=== PATIENT | female | born 1975 | race Caucasian/White ===

== ENCOUNTER 2017-01-03 04:27 | Emergency (ER) | payer OTHER ==
[2017-01-03 04:41] VITALS: BP 134/85; PULSE 90; TEMP 97.5; BMI 28.3
[2017-01-03] MEDS ORDERED: ALBUTEROL SO4 2.5/IPRATROPIUM 0.5 INH SOL 3 ML VIAL.NEB. NEB STA ×2 (04:48→05:22)
[2017-01-03] MEDS ORDERED: predniSONE 20 MG TABLET (UD) PO ONE (04:50)
--- NOTE | 2017-01-03 04:50 | PDOC ---
History of Present Illness - General History Source: Patient Exam Limitations: No Limitations - History of Present Illness Initial Comments: 01/03/17 05:08 The patient is a 41 year old female with a significant past medical of asthma and seasonal allergies (on Zyrtec), who presents to the ER with shortness of breath and cough for two weeks. Patient reports she has a productive cough with green phlegm. She say she has accompanied abdominal pain when she coughs. Patient had 1 treatment of albuterol three days ago. She reports borrowing her daughters pump yesterday for the symptoms. Patient says she made an appointment with her PCP for next week. Patient reports she has difficulty sleeping secondary to the shortness of breath. She states she was admitted for asthma and given steroid medication last year. Denies fever, chills Denies nausea, vomiting, diarrhea Denies chest pain PCP: Dr. Oneyda Walker <Philly Marrufo - Last Filed: 01/03/17 05:07> - General History Source: Patient <Rodo Roth - Last Filed: 01/03/17 05:23> - General Chief Complaint: Asthma Stated Complaint: ASTHMA Time Seen by Provider: 01/03/17 04:48 Past History <Philly Marrufo - Last Filed: 01/03/17 05:07> - Past Medical History Anemia: No Asthma: Yes Cancer: No Cardiac Disorders: No CVA: No COPD: No CHF: No Dementia: No Diabetes: No GI Disorders: No Disorders: No HTN: No Hypercholesterolemia: No Liver Disease: No Seizures: No Thyroid Disease: No - Surgical History Abdominal Surgery: Yes (ABDOMINOPLASTY) Appendectomy: No Cardiac Surgery: No Cholecystectomy: No Lung Surgery: No Neurologic Surgery: No Orthopedic Surgery: No - Family Disease History Family Disease History: Diabetes: Mother - Reproductive History (#): 2 Para: 1 Therapeutic (s) & number: No - Immunization History Immunization Up to Date: Yes - Psycho/Social/Smoking Cessation Hx Anxiety: No Suicidal Ideation: No Smoking History: Never smoked Have you smoked in the past 12 months: No Information on smoking cessation initiated: No Hx Alcohol Use: No Drug/Substance Use Hx: No Substance Use Type: None Hx Substance Use Treatment: No <Rodo Roth - Last Filed: 01/03/17 05:23> - Past Medical History Allergies/Adverse Reactions: Allergies Allergy/AdvReac Type Severity Reaction Status Date / Time No Known Allergies Allergy Verified 01/03/17 04:40 Home Medications: Ambulatory Orders Albuterol Sulfate Inhaler - [Ventolin HFA Inhaler -] 1 - 2 inh PO PRN PRN Albuterol 0.083% Nebulizer Mary [Ventolin 0.083% Nebulizer Soln -] 1 neb NEB Q6H #30 vial 01/03/17 Albuterol Sulfate Inhaler - [Ventolin HFA Inhaler -] 2 inh IH Q6H #1 inh Methylprednisolone [Medrol Dose Kevin] 4 mg PO ASDIR #21 tablet 01/03/17 Review of Systems - Review of Systems Comments:: 01/03/17 05:08 CONSTITUTIONAL: Absent: fever, no chills, no fatigue EYES: Absent: visual changes ENT: Absent: ear pain, no sore throat CARDIOVASCULAR: Absent: chest pain, no palpitations RESPIRATORY: Present: +cough, + SOB GI: Present: +abdominal pain Absent: no nausea, no vomiting, no constipation, no diarrhea GENITOURINARY: Absent: dysuria, no frequency, no hematuria MUSCULOSKELETAL: Absent: back pain, no arthralgia, no myalgia SKIN: Absent: rash NEURO: Absent: headache <Uts,Philly - Last Filed: 01/03/17 05:07> *Physical Exam - Vital Signs Last Vital Signs Temp Pulse Resp BP Pulse Ox 97.5 F L 90 20 134/85 100 01/03/17 04:38 01/03/17 04:38 01/03/17 04:38 01/03/17 04:38 01/03/17 04:38 - Physical Exam Comments: 01/03/17 05:09 GENERAL: Well-appearing, well-nourished. No apparent distress. HEENT: Normocephalic, atraumatic. PERRL, EOM intact. CARDIOVASCULAR: Normal S1, S2. Regular rate and rhythm. PULMONARY: Scattered wheezes in all lung box ABDOMEN: Soft, non-distended, non-tender. EXTREMITIES: Normal ROM in all four extremities. No gross deformities. SKIN: Warm, dry. No rash NEUROLOGICAL: No focal neurological deficits. <Uts,Philly - Last Filed: 01/03/17 05:07> - Vital Signs Last Vital Signs Temp Pulse Resp BP Pulse Ox 97.5 F L 90 20 134/85 100 01/03/17 04:38 01/03/17 04:38 01/03/17 04:38 01/03/17 04:38 01/03/17 04:38 <Rodo Roth - Last Filed: 01/03/17 05:23> Medical Decision Making - Medical Decision Making 01/03/17 05:23 Dr. Roth: The scribe's documentation has been prepared under my direction and personally reviewed by me in its entirery. I confirm that the note above accurately reflects all work, treatment, procedures, and medical decision making performed by me. <Rodo Roth - Last Filed: 01/03/17 05:23> *DC/Admit/Observation/Transfer - Attestations Scribe Attestion: 01/03/17 05:09 Documentation prepared by Philly Marrufo, acting as medical secretary for Rodo Roth DO. <Philly Marrufo - Last Filed: 01/03/17 05:07> - Discharge Dispostion Admit: No <Rodo Roth - Last Filed: 01/03/17 05:23> Diagnosis at time of Disposition: Asthma Qualifiers: Asthma severity: unspecified severity Asthma complication type: uncomplicated Qualified Code(s): J45.909 - Unspecified asthma, uncomplicated - Discharge Dispostion Disposition: HOME Condition at time of disposition: Stable - Prescriptions Prescriptions: Methylprednisolone [Medrol Dose Kevin] 4 mg PO ASDIR #21 tablet Albuterol 0.083% Nebulizer Mary [Ventolin 0.083% Nebulizer Soln -] 1 neb NEB Q6H #30 vial Albuterol Sulfate Inhaler - [Ventolin HFA Inhaler -] 2 inh IH Q6H #1 inh - Referrals Referrals: Siomara Erickson MD [Primary Care Provider] - - Patient Instructions Printed Discharge Instructions: Asthma -- Adult Print Language: SWISS
[2017-01-03] MEDS ORDERED: predniSONE 20 MG TABLET (UD) ONE (05:05)
[2017-01-03] MEDS ORDERED: ALBUTEROL SO4 2.5/IPRATROPIUM 0.5 INH SOL 3 ML VIAL.NEB. NEB ONE (05:25)
== END 2017-01-03 06:17 | disposition home or self-care (01) ==
LOC: JER 04:27
PROC: 3E0F7GC Introduction of Other Therapeutic Substance into Respiratory Tract, Via Natural or Artificial Opening (ICD-10-PCS; principal; 2017-01-03)
DX: J45.909 Unspecified asthma, uncomplicated (principal)
CPT/HCPCS: 94640; 99282-25

== ENCOUNTER 2017-09-19 15:59 | Emergency (ER) | payer OTHER ==
[2017-09-19 16:18] VITALS: BMI 27.3
[2017-09-19] MEDS ORDERED: SODIUM CHLORIDE 1,000 ML IV STA ×2 (16:40→20:02)
[2017-09-19] MEDS ORDERED: KETOROLAC TROMETHAMINE 30 MG/1 ML VIAL IVPUSH ONE (16:41)
[2017-09-19] MEDS ORDERED: KETOROLAC TROMETHAMINE 30 MG/1 ML VIAL ONE (16:55)
[2017-09-19 16:57] LABS: BASO % 0.5 % (0-2.0); EOS % 1.1 % (0-4.5); HEMATOCRIT 38.3 % (32.4-45.2); HEMOGLOBIN 12.6 GM/dL (10.7-15.3); MCH 31.3 pg (25.7-33.7); MCHC 32.9 g/dl (32.0-36.0); MEAN PLT VOLUME 7.8 fl (7.5-11.1); MONO % 4.2 % (3.8-10.2); NEUT % 81.2 % (42.8-82.8); PLATELET COUNT 236 K/MM3 (134-434); RBC 4.03 M/mm3 (3.60-5.2); RDW 13.4 % (11.6-15.6); WHITE BLOOD COUNT 12.2 K/mm3 (4.0-10.0)
--- NOTE | 2017-09-19 17:01 | PDOC ---
History of Present Illness - General Chief Complaint: Vaginal Bleeding Stated Complaint: ABD PAIN Time Seen by Provider: 09/19/17 16:16 History Source: Patient - History of Present Illness Timing/Duration: reports: constant Quality: reports: severe Past History - Past Medical History Allergies/Adverse Reactions: Allergies Allergy/AdvReac Type Severity Reaction Status Date / Time No Known Allergies Allergy Verified 09/19/17 16:15 Home Medications: Ambulatory Orders Albuterol Sulfate Inhaler - [Ventolin HFA Inhaler -] 1 - 2 inh PO PRN PRN Albuterol 0.083% Nebulizer Mray [Ventolin 0.083% Nebulizer Soln -] 1 neb NEB Q6H #30 vial 01/03/17 Albuterol Sulfate Inhaler - [Ventolin HFA Inhaler -] 2 inh IH Q6H #1 inh Methylprednisolone [Medrol Dose Kevin] 4 mg PO ASDIR #21 tablet 01/03/17 Anemia: No Asthma: Yes Cancer: No Cardiac Disorders: No CVA: No COPD: No CHF: No Dementia: No Diabetes: No GI Disorders: No Disorders: No HTN: No Hypercholesterolemia: No Liver Disease: No Seizures: No Thyroid Disease: No - Surgical History Abdominal Surgery: Yes (ABDOMINOPLASTY) Appendectomy: No Cardiac Surgery: No Cholecystectomy: No Lung Surgery: No Neurologic Surgery: No Orthopedic Surgery: No - Family Disease History Family Disease History: Diabetes: Mother - Reproductive History (#): 2 Para: 1 Therapeutic (s) & number: No - Immunization History Immunization Up to Date: Yes - Suicide/Smoking/Psychosocial Hx Smoking History: Never smoked Have you smoked in the past 12 months: No Information on smoking cessation initiated: No Hx Alcohol Use: No Drug/Substance Use Hx: No Substance Use Type: None Hx Substance Use Treatment: No Review of Systems - Review of Systems Constitutional: No: Chills, Fever ABD/GI: Yes: Abdominal cramping. No: Nausea, Vomiting : No: Dysuria *Physical Exam - Vital Signs Last Vital Signs Temp Pulse Resp BP Pulse Ox 98.6 F 88 22 129/87 100 09/19/17 16:15 09/19/17 16:15 09/19/17 16:15 09/19/17 16:15 09/19/17 16:15 - Physical Exam General Appearance: Yes: Appropriately Dressed, Mild Distress HEENT: positive: Normal Voice Neck: positive: Supple Respiratory/Chest: negative: Respiratory Distress Gastrointestinal/Abdominal: positive: Tender (diffusely to lower abd), Soft. negative: Distended, Guarding, Rebound Integumentary: positive: Dry, Warm Neurologic: positive: Fully Oriented, Alert, Normal Mood/Affect ED Treatment Course - LABORATORY CBC & Chemistry Diagram: 09/19/17 16:52 09/19/17 16:52 - RADIOLOGY Radiology Studies Ordered: Category Date Time Status TRANSVAGINAL US PREG [US] Stat Ultrasound 09/19/17 16:40 Ordered Medical Decision Making - Medical Decision Making 09/19/17 16:50 42 yo F, (s/p spon AB), diagnosed with spontaneous AB at 12 weeks, 5 days ago on ultrasound. States she was seen by her LAWNMOWER MECHANIC, Dr. Chavez yesterday and started on cytotec SL which she took for first time this am and now presents with worsening abdominal cramping throughout the day and started having profuse vaginal bleed enroute per patient. No dizziness, weakness, syncope, nausea, vomiting, fever or chills See exam Abd cramping with profuse vaginal bleed s/p dose of cytotec SL today for spontaneous AB at 12 weeks. Stable in ED but appears uncomfortable, currently sitting on melissa that is saturated with blood, unable to timoteo speculum exam -pain control -IVF -labs -rpt US -LAWNMOWER MECHANIC c/s 09/19/17 17:32 09/19/17 19:01 Pt signed out to KAT Dowd pending US and LAWNMOWER MECHANIC c/s *DC/Admit/Observation/Transfer Diagnosis at time of Disposition: Complete - Discharge Dispostion Disposition: HOME Condition at time of disposition: Stable - Referrals Referrals: Halie Chavez MD [Certified Nurse Dairy Nutritionist] - Siomara Erickson MD [Primary Care Provider] - - Patient Instructions Printed Discharge Instructions: DI for Miscarriage Additional Instructions: You were able to pass the contents of your in the emergency department. Please follow-up with your primary care doctor or CARDIOVASCULAR TECHNOLOGIST doctor this week. You may take ibuprofen 800 mg 3 times a day as needed for pain. Please drink plenty of fluids and get plenty of rest. Return to the emergency department if you have worsening bleeding, abdominal pain, or any worsening or concerning symptoms. - Post Discharge Activity Forms/Work/School Notes: Back to Work
[2017-09-19 17:20] LABS: INR 1.01 (0.82-1.09); PROTHROMBIN TIME (PATIENT) 11.4 SEC (9.98-11.88)
[2017-09-19 17:30] LABS: ALBUMIN 3.2 g/dl (3.4-5.0); ANION GAP 8 (8-16); BILIRUBIN,TOTAL 0.2 mg/dL (0.2-1.0); BLOOD UREA NITROGEN 9 mg/dL (7-18); CALCIUM 8.1 mg/dL (8.5-10.1); CHLORIDE 105 mmol/L (98-107); CO2 25 mmol/L (21-32); CREATININE 0.5 mg/dL (0.55-1.02); GLUCOSE,RANDOM 92 mg/dL (74-106); SGOT/AST 12 U/L (15-37); SGPT/ALT 19 U/L (12-78); SODIUM 138 mmol/L (136-145)
[2017-09-19 17:45] LABS: ALK PHOS 58 U/L (45-117)
[2017-09-19 17:50] LABS: URINE APPEARANCE SLCLOUDY; URINE BILIRUBIN NEGATIVE (NEGATIVE); URINE BLOOD 3+ (NEGATIVE); URINE COLOR LTYELLOW; URINE GLUCOSE (UA) NEGATIVE (NEGATIVE); URINE KETONE NEGATIVE (NEGATIVE); URINE LEUK ESTERASE NEGATIVE (NEGATIVE); URINE NITRITE NEGATIVE (NEGATIVE); URINE UROBILINOGEN NEGATIVE mg/dL (0.2-1.0)
[2017-09-19 18:29] LABS: URINE PROTEIN 1+ (NEGATIVE)
[2017-09-19 18:57] LABS: CALCIUM OXALATE CRYSTALS FEW /hpf (NONE SEEN); URINE BACTERIA RARE /hpf (NONE SEEN)
--- NOTE | 2017-09-19 19:27 | PDOC ---
*Physical Exam - Vital Signs Last Vital Signs Temp Pulse Resp BP Pulse Ox 98.6 F 88 22 129/87 100 09/19/17 16:15 09/19/17 16:15 09/19/17 16:15 09/19/17 16:15 09/19/17 16:15 ED Treatment Course - LABORATORY CBC & Chemistry Diagram: 09/19/17 16:52 09/19/17 16:52 - ADDITIONAL ORDERS Additional order review: Laboratory Results 09/19/17 09/19/17 09/19/17 17:35 16:52 16:52 PT with INR 11.40 INR 1.01 Sodium Potassium Chloride Carbon Dioxide Anion Gap BUN Creatinine Creat Clearance w eGFR Random Glucose Calcium Total Bilirubin AST ALT Alkaline Phosphatase Total Protein Albumin Beta HCG, Quant Urine Color Ltyellow Urine Appearance Slcloudy Urine pH 8.0 D Ur Specific Hickman 1.012 Urine Protein 1+ H Urine Glucose (UA) Negative Urine Ketones Negative Urine Blood 3+ H Urine Nitrite Negative Urine Bilirubin Negative Urine Urobilinogen Negative Ur Leukocyte Esterase Negative Urine WBC (Auto) 5 Urine RBC (Auto) 1111 Calcium Oxalate Crystal Few Urine Bacteria Rare Blood Type O POSITIVE Antibody Screen Negative 09/19/17 16:52 PT with INR INR Sodium 138 Potassium 4.0 Chloride 105 Carbon Dioxide 25 Anion Gap 8 BUN 9 Creatinine 0.5 L Creat Clearance w eGFR > 60 Random Glucose 92 Calcium 8.1 L Total Bilirubin 0.2 D AST 12 L ALT 19 Alkaline Phosphatase 58 Total Protein 7.0 Albumin 3.2 L Beta HCG, Quant 1309.0 Urine Color Urine Appearance Urine pH Ur Specific Hickman Urine Protein Urine Glucose (UA) Urine Ketones Urine Blood Urine Nitrite Urine Bilirubin Urine Urobilinogen Ur Leukocyte Esterase Urine WBC (Auto) Urine RBC (Auto) Calcium Oxalate Crystal Urine Bacteria Blood Type Antibody Screen 09/19/17 16:52 RBC 4.03 MCV 95.0 MCHC 32.9 RDW 13.4 MPV 7.8 Neutrophils % 81.2 D Lymphocytes % 13.0 D Monocytes % 4.2 Eosinophils % 1.1 Basophils % 0.5 - Medications Given in the ED: ED Medications Discontinued Medications Generic Name Dose Route Start Last Admin Trade Name Freq PRN Reason Stop Dose Admin Sodium Chloride 1,000 mls @ 1,000 mls/hr 09/19/17 16:40 09/19/17 17:03 Normal Saline - IV 09/19/17 17:39 1,000 mls/hr ASDIR STA Administration Ketorolac Tromethamine 30 mg 09/19/17 16:41 09/19/17 17:04 Toradol Injection - IVPUSH 09/19/17 16:42 30 mg ONCE ONE Administration Medical Decision Making - Medical Decision Making 09/19/17 19:36 Received sign out from AKT Phelps. Pt. is pending US for retained products. Spoke with Dr. Rucker d/t pt soaking multiple chucks. States that the patient should expect large amount of bleeding d/t the cytotec. She is not a candidate for D&C as she has only had one dose of cytotec. Will call Dr. Rucker back when patient is back from US as to further dosing instructions for cytotec 09/19/17 19:59 Pt. states that she has had 8 total cytotec suppositories. Spoke with Dr. Soriano again. Recommends that she have 6 more cytotec, 3 pills for 2 more days and ibuprofen for pain. Waiting for US results. 09/19/17 20:[address] Soriano, based on US no cytotec, sac and pole still retained. Recommended pitocin drip at this time 20 units at a rate of 20 per hour to induce. 09/20/17 00:01 Dr. Soriano also requesting 200mcg of cytotec vaginal suppository. 09/20/17 03:06 No passed products. Patient to get another 200mgc of cytotec per Dr. Rucker. 09/20/17 04:07 Still no passed products 09/20/17 05:45 Pitocin drip restarted. Will give another 200mg of cytotec orally. Dr. Rucker in evaluating patient 09/20/17 06:19 Dr. Rucker able to manually remove products in ED. Verbal and written consent obtained. Will continue pitocin drip for two hours. If she has minimal bleeding at 8am she may go home. *DC/Admit/Observation/Transfer Diagnosis at time of Disposition: Complete - Discharge Dispostion Disposition: HOME Condition at time of disposition: Stable Admit: No - Referrals Referrals: Siomara Erickson MD [Primary Care Provider] - Halie Chavez MD [Certified Nurse Airbrush Painter] - - Patient Instructions Printed Discharge Instructions: DI for Miscarriage Additional Instructions: You were able to pass the contents of your in the emergency department. Please follow-up with your primary care doctor or ENGRAVER COPPERPLATE doctor this week. You may take ibuprofen 800 mg 3 times a day as needed for pain. Please drink plenty of fluids and get plenty of rest. Return to the emergency department if you have worsening bleeding, abdominal pain, or any worsening or concerning symptoms. - Post Discharge Activity Forms/Work/School Notes: Back to Work
[2017-09-19] MEDS ORDERED: ACETAMINOPHEN 1000 MG/100 ML VIAL (NON FORMULARY) IVPB ONE (20:06)
[2017-09-19] MEDS ORDERED: D5W-LR W/ 20 UNITS OXYTOCIN 20 UNIT/1,000 ML INFUS.BAG IV SCH ×2 (20:15→23:02)
[2017-09-19] MEDS ORDERED: ACETAMINOPHEN INJECTION 100 ML IVPB ONE (20:52)
[2017-09-19] MEDS ORDERED: OXYTOCIN 10 UNITS/ML VIAL ONE (20:53)
[2017-09-19] MEDS ORDERED: MISOPROSTOL 200 MCG TABLET PV ONE (23:30)
[2017-09-20] MEDS ORDERED: MISOPROSTOL 200 MCG TABLET PO ONE ×2 (02:03→05:35)
[2017-09-20] MEDS ORDERED: SODIUM CHLORIDE 1,000 ML IV SCH (03:30)
[2017-09-20] MEDS ORDERED: KETOROLAC TROMETHAMINE 30 MG/1 ML VIAL IVPUSH ONE (05:34)
[2017-09-20] MEDS ORDERED: OXYTOCIN 20 UNITS in 0.9% NS 20 UNIT/1,000 ML INFUS.BAG IV SCH (05:45)
[2017-09-20] MEDS ORDERED: OXYTOCIN 10 UNITS/ML VIAL ONE (05:50)
[2017-09-20] MEDS ORDERED: KETOROLAC TROMETHAMINE 30 MG/1 ML VIAL ONE (06:00)
[2017-09-20] MEDS ORDERED: CEFAZOLIN 1 GM PUSH 1 GM/10 ML DISP.SYRIN IVPUSH ONE ×2 (06:00→06:01)
--- NOTE | 2017-09-20 07:14 | CON.OBG ---
Consult Consult Specialty:: animal care supervisor Referred by:: Noemí Viramontes PA Reason for Consultation:: sp - History of Present Illness Chief Complaint: 42 Yrs , 12.5 weeks gestation , presented in ER with heavy bleeding & cramps s/p cytotec taken total 8 tabs , 6 in vagina , 2 b orally prescribed from the clinic at [address] [place] [id number] due to missed . sonogram done in ER reported as sac with pole 10.2 weeks, abs fhr in lower cervix History of Present Illness: pt had [facility] at [address] [place] [address] hi/o bleeding after taking cytotec on 09/19/17 ai am pt was seen on 09/18/17 in the clinic was diagnosed Missed - History Source History Provided By: Patient, Medical Record Limitations to Obtaining History: No Limitations - Past Medical History CRUDE TESTER: No: Migraine, Seizure Cardio/Vascular: No: HTN, Murmur Pulmonary: Yes: Asthma Gastrointestinal: No: Constipation Hepatobiliary: No: Cholelithiasis, Cholecystitis Renal/: No: UTI ...LMP: 06/20/17 ...: Yes ...: 5 ...Para: 3 (3 12, 9 ,2 yrs ago ) Heme/Onc: No: Anemia Infectious Disease: Yes: Other (denies ) Psych: Yes: Other (denies) Musculoskeletal: Yes: Other (denies) Rheumatology: Yes: Other (denies) Endocrine: Yes: Other (d4nies) - Past Surgical History Additional Surgical History: h/o abdominoplasty - Alcohol/Substance Use Hx Alcohol Use: No - Smoking History Smoking history: Never smoked Have you smoked in the past 12 months: No Home Medications - Allergies Allergies/Adverse Reactions: Allergies Allergy/AdvReac Type Severity Reaction Status Date / Time No Known Allergies Allergy Verified 09/19/17 16:15 - Home Medications Home Medications: Ambulatory Orders Albuterol Sulfate Inhaler - [Ventolin HFA Inhaler -] 1 - 2 inh PO PRN PRN Albuterol 0.083% Nebulizer Mary [Ventolin 0.083% Nebulizer Soln -] 1 neb NEB Q6H #30 vial 01/03/17 Albuterol Sulfate Inhaler - [Ventolin HFA Inhaler -] 2 inh IH Q6H #1 inh Methylprednisolone [Medrol Dose Kevin] 4 mg PO ASDIR #21 tablet 01/03/17 Physical Exam-BATTING MACHINE OPERATOR Vital Signs: Vital Signs Temperature 98.7 F 09/20/17 07:03 Pulse Rate 78 09/20/17 07:03 Respiratory Rate 22 09/19/17 16:15 Blood Pressure 96/59 09/20/17 07:03 O2 Sat by Pulse Oximetry (%) 100 09/20/17 07:03 Selected Entries 09/19/17 16:15 Temperature 98.6 F Pulse Rate 88 Respiratory 22 Rate Blood Pressure 129/87 Blood Pressure 101 Mean Weight 140 lb Constitutional: Yes: Moderate Distress Eyes: Yes: WNL HENT: Yes: WNL Neck: Yes: WNL Cardiovascular: Yes: WNL Respiratory: Yes: WNL Gastrointestinal: Yes: WNL ...Rectal Exam: Yes: WNL Renal/: Yes: WNL External Genitalia: Yes: Normal Vaginal Exam: Yes: Bleeding (with blood clots) Cervix: Yes: Bleeding, Other (sac at os) Uterus: Yes: Anteverted, Boggy, Enlarged (8 weeks size), Soft Adnexa: Tender: Bilateral, Not Palpable: Bilateral Breast(s): Yes: Other (not examined) Musculoskeletal: Yes: WNL Extremities: Yes: WNL. No: Calf Tenderness Edema: No Integumentary: Yes: Incision (abdominoplasty scar) Neurological: Yes: WNL ...Motor Strength: WNL Psychiatric: Yes: WNL Labs: CBC, BMP 09/19/17 16:52 09/19/17 16:52 Assessment/Plan 42 yrs , 12.5 weeks by dates, 10.3 weeks by sono abs fhr, s/p intravaginal cytotec , with bleeding Inevitable Plan Iv Pitocin & vaginal cytotec was given 2 dose 200 mcg intravaginal 3 hrs apart Pitocin was d/demetria after 1000 ml evacuation of sac & blood clots from cx open os & uterus were done with ring forcep after cleaning vagina with betadine bleeding reduced after evacuating blood clots & tissuse from the vagina plan continue 20 units pitocin for 2 hrs , until stable & Po cytotec one dose of 200 mcg Iv ancef 1 gm prophylactically pt advised to expect bleeding like period rtc for f/u avoid sexual contact for 2 weeks
--- NOTE | 2017-09-20 07:32 | PDOC ---
*Physical Exam - Vital Signs Last Vital Signs Temp Pulse Resp BP Pulse Ox 98.7 F 78 22 96/59 100 09/20/17 07:03 09/20/17 07:03 09/19/17 16:15 09/20/17 07:03 09/20/17 07:03 ED Treatment Course - LABORATORY CBC & Chemistry Diagram: 09/19/17 16:52 09/19/17 16:52 - ADDITIONAL ORDERS Additional order review: 09/19/17 16:52 RBC 4.03 MCV 95.0 MCHC 32.9 RDW 13.4 MPV 7.8 Neutrophils % 81.2 D Lymphocytes % 13.0 D Monocytes % 4.2 Eosinophils % 1.1 Basophils % 0.5 - Medications Given in the ED: ED Medications Discontinued Medications Generic Name Dose Route Start Last Admin Trade Name Mikhailq PRN Reason Stop Dose Admin Acetaminophen 1,000 mg 09/19/17 20:06 09/19/17 20:59 Ofirmev Injection - IVPB 09/19/17 20:07 1,000 mg ONCE ONE Administration Cefazolin Sodium 1 gm 09/20/17 05:57 09/20/17 06:09 Ancef 1gm Ivpb (Pre-Docked) IVPB 09/20/17 05:58 1 gm ONCE ONE Administration Sodium Chloride 1,000 mls @ 1,000 mls/hr 09/19/17 16:40 09/19/17 17:03 Normal Saline - IV 09/19/17 17:39 1,000 mls/hr ASDIR STA Administration Dextrose/Lactated Ringer's 20 unit in 1,000 mls @ 125 mls/hr 09/19/17 20:15 09/19/17 21:16 Pitocin 20 Units In D5-Lr - IV 125 mls/hr ASDIR HOME Administration Sodium Chloride 1,000 mls @ 1,000 mls/hr 09/19/17 20:02 09/19/17 20:49 Normal Saline - IV 09/19/17 21:01 1,000 mls/hr ASDIR STA Administration Ketorolac Tromethamine 30 mg 09/19/17 16:41 09/19/17 17:04 Toradol Injection - IVPUSH 09/19/17 16:42 30 mg ONCE ONE Administration Ketorolac Tromethamine 30 mg 09/20/17 05:34 09/20/17 06:08 Toradol Injection - IVPUSH 09/20/17 05:35 30 mg ONCE ONE Administration Misoprostol 200 mcg 09/19/17 23:30 09/19/17 23:27 Cytotec - PV 09/19/17 23:31 200 mcg ONCE ONE Administration Misoprostol 200 mcg 09/20/17 02:03 09/20/17 02:31 Cytotec - PO 09/20/17 02:04 200 mcg ONCE ONE Administration Misoprostol 200 mcg 09/20/17 05:35 09/20/17 06:15 Cytotec - PO 09/20/17 05:36 200 mcg ONCE ONE Administration Medical Decision Making - Medical Decision Making 09/20/17 07:31 Patient received in sign out from KAT Barbosa. Patient status post D&C secondary to retained products. Patient currently on Pitocin drip as recommended by Dr. Rucker and if no bleeding is noted at 8 AM patient may be discharged home to follow-up with MULTI SLIDE MACHINE TENDER. Selected Entries 09/20/17 07:03 Temperature 98.7 F Pulse Rate [ 78 Left Radial] Blood Pressure 96/59 [Right Arm] O2 Sat by Pulse 100 Oximetry (%) Laboratory Tests 09/19/17 16:52 Hgb 12.6 Hct 38.3 09/20/17 08:[address] Rucker and agrees patient may be discharged home. Patient with minimal bright red blood noted on sanitary napkin measuring 3 x 1 cm in length after wearing it for 2 hours. *DC/Admit/Observation/Transfer Diagnosis at time of Disposition: Complete - Discharge Dispostion Disposition: HOME Condition at time of disposition: Stable - Referrals Referrals: Halie Chavez MD [Certified Nurse Robotics Software Engineer] - Siomara Erickson MD [Primary Care Provider] - - Patient Instructions Printed Discharge Instructions: DI for Miscarriage Additional Instructions: You were able to pass the contents of your in the emergency department. Please follow-up with your primary care doctor or MULTI SLIDE MACHINE TENDER doctor this week. You may take ibuprofen 800 mg 3 times a day as needed for pain. Please drink plenty of fluids and get plenty of rest. Return to the emergency department if you have worsening bleeding, abdominal pain, or any worsening or concerning symptoms. - Post Discharge Activity Forms/Work/School Notes: Back to Work
[2017-09-20] MEDS ORDERED: MISOPROSTOL 200 MCG TABLET PO SCH (08:00)
[2017-09-20 09:04] VITALS: BP 102/68; PULSE 75; TEMP 98.4
--- NOTE | 2017-09-26 17:17 | PATH ---
Surgical Pathology Report Patient Name: CURT HERNANDEZ [facility]. Rec. #: [id number] /Age/Gender: 1975 (Age: 42) / F Account: [id number] Location: EMERGENCY ROOM Taken: 09/20/2017 Received: 09/20/2017 Reported: 09/26/2017 Physicians: Randolph Flynn M.D. Specimen(s) Received PRODUCTS OF CONCEPTION Clinical History Vaginal bleeding Final Diagnosis PRODUCTS OF CONCEPTION, EVACUATION: 2 G IMMATURE FETUS. 18 G IMMATURE PLACENTA. Electronically Signed Crystal Mathews M.D. Gross Description Received in formalin labeled with the patient's name and indicated on the requisition to be products of conception, is an intact amniotic sac containing a 2 g, mostly intact fetus measuring 3.3 cm from crown to rump and 4 cm from crown to heel. The ventral wall of the fetus is disrupted. Each foot measures 0.3 cm from heel to toe. Each hand and foot displays 5 digits. The lumbosacral spine is intact. Also received within the same container is an 18 g, 6.0 x 4.4 x 1.3 cm placenta with abundant hemorrhage and attached red-brown blood clot. Shopper'S Aide sections are submitted in 3 cassettes as follows: 1- somatic tissue; 9-4-[id number] placenta. 09/22/2017 [facility]09/22/2017
== END 2017-09-20 09:10 | disposition home or self-care (01) ==
LOC: JER 15:59
PROC: 3E0333Z Introduction of Anti-inflammatory into Peripheral Vein, Percutaneous Approach (ICD-10-PCS; principal; 2017-09-19)
PROC: 3E033NZ Introduction of Analgesics, Hypnotics, Sedatives into Peripheral Vein, Percutaneous Approach (ICD-10-PCS; 2017-09-19)
PROC: 3E033TZ Introduction of Destructive Agent into Peripheral Vein, Percutaneous Approach (ICD-10-PCS; 2017-09-19)
PROC: 3E033NZ Introduction of Analgesics, Hypnotics, Sedatives into Peripheral Vein, Percutaneous Approach (ICD-10-PCS; 2017-09-19)
PROC: 3E033GC Introduction of Other Therapeutic Substance into Peripheral Vein, Percutaneous Approach (ICD-10-PCS; 2017-09-19)
DX: O03.9 Complete or unspecified spontaneous abortion without complication (principal)
CPT/HCPCS: 36415; 76817-TC; 80053; 81003; 81015; 84702; 85025; 85610; 86850; 86900; 86901; 88305-TC; 96361; 96365; 96366; 96374; 96375; 99284-25

== ENCOUNTER 2017-12-04 18:46 | Emergency (ER) | payer OTHER ==
[2017-12-04 18:51] VITALS: BP 113/56; PULSE 87; TEMP 98.1; BMI 26.9
[2017-12-04] MEDS ORDERED: ALBUTEROL SO4 2.5/IPRATROPIUM 0.5 INH SOL 3 ML VIAL.NEB. NEB ONE ×2 (19:15→19:28)
[2017-12-04] MEDS ORDERED: predniSONE 20 MG TABLET (UD) ONE (19:16)
--- NOTE | 2017-12-04 19:19 | PDOC ---
History of Present Illness - General Chief Complaint: Asthma Stated Complaint: ASTHMA Time Seen by Provider: 12/04/17 18:59 History Source: Patient Exam Limitations: No Limitations - History of Present Illness Initial Comments: 12/04/17 19:14 This a 42-year-old woman past medical history of asthma requiring intubation one time last year who presents emergency Department with 2-3 weeks of moist cough and progressive shortness of breath. Patient states she's been taking her albuterol MDI with minimal relief of symptoms. Patient now has upper back pain which worsens with coughing. She denies any fevers, chills, shortness of breath. Past History - Past Medical History Allergies/Adverse Reactions: Allergies Allergy/AdvReac Type Severity Reaction Status Date / Time No Known Allergies Allergy Verified 12/04/17 18:48 Home Medications: Ambulatory Orders Azithromycin [Zithromax 250mg Tablets -] 250 mg PO UTDICT #6 tab 12/04/17 Anemia: No Asthma: Yes Cancer: No Cardiac Disorders: No CVA: No COPD: No CHF: No Dementia: No Diabetes: No GI Disorders: No Disorders: No HTN: No Hypercholesterolemia: No Liver Disease: No Seizures: No Thyroid Disease: No - Surgical History Abdominal Surgery: Yes (ABDOMINOPLASTY) Appendectomy: No Cardiac Surgery: No Cholecystectomy: No Lung Surgery: No Neurologic Surgery: No Orthopedic Surgery: No - Family Disease History Family Disease History: Diabetes: Mother - Reproductive History (#): 2 Para: 1 Cervical CA: No Dysfunctional Uterine Bleeding: No Ectopic : No Endometrial CA: No Polycystic Ovaries: No Therapeutic (s) & number: No Tubal Ligation: No - Immunization History Immunization Up to Date: Yes - Suicide/Smoking/Psychosocial Hx Smoking History: Never smoked Have you smoked in the past 12 months: No Information on smoking cessation initiated: No Hx Alcohol Use: No Drug/Substance Use Hx: No Substance Use Type: None Hx Substance Use Treatment: No Respiratory Specific PMHX - Complaint Specific PMHX Angina: No Bronchitis: Yes Pneumonia: Yes Pulmonary Embolus: No TB (Tuberculosis): No Review of Systems - Review of Systems Able to Perform ROS?: Yes Is the patient limited Sinhala proficient: No Constitutional: No: Symptoms Reported HEENTM: No: Symptoms Reported Respiratory: Yes: See HPI Cardiac (ROS): No: Symptoms Reported ABD/GI: No: Symptoms Reported : No: Symptoms Reported Musculoskeletal: Yes: See HPI Integumentary: No: Symptoms Reported Neurological: No: Symptoms reported Endocrine: No: Symptoms Reported Hematologic/Lymphatic: No: Symptoms Reported *Physical Exam - Vital Signs Last Vital Signs Temp Pulse Resp BP Pulse Ox 98.1 F 87 18 113/56 97 12/04/17 18:48 12/04/17 18:48 12/04/17 18:48 12/04/17 18:48 12/04/17 18:48 - Physical Exam General Appearance: Yes: Appropriately Dressed. No: Apparent Distress HEENT: positive: Normal ENT Inspection Neck: positive: Trachea midline, Supple Respiratory/Chest: positive: Lungs Clear, Wheezing (Expirational). negative: Respiratory Distress, Accessory Muscle Use Cardiovascular: positive: Regular Rhythm, Regular Rate. negative: Murmur Gastrointestinal/Abdominal: positive: Normal Bowel Sounds, Soft. negative: Tender Musculoskeletal: positive: Normal Inspection. negative: CVA Tenderness Extremity: positive: Normal Inspection, Normal Range of Motion Integumentary: positive: Normal Color, Dry, Warm Neurologic: positive: Alert, Normal Response Medical Decision Making - Medical Decision Making 12/04/17 19:17 A/P: 42-year-old female with history of asthma with 2 weeks of shortness of breath and cough Respirations even and unlabored. Patient is speaking in full sentences. End expiratory wheezes noted. Crackles present which clear upon coughing. RRR. No murmur rub or gallop noted. Combivent, prednisone, chest x-ray, reassess 12/04/17 20:07 Chest x-rays read by me: No focal infiltrate or consolidation noted. No pneumothorax is seen. Cardiac silhouette is within normal limits Lungs clear to auscultation bilaterally. Bronchitis Given the patient's asthma history and intubation less than one year ago I will treat the patient with azithromycin as an outpatient with instructions to follow -up with her primary doctor. *DC/Admit/Observation/Transfer Diagnosis at time of Disposition: Bronchitis with asthma, acute - Discharge Dispostion Disposition: HOME Condition at time of disposition: Stable Admit: No - Prescriptions Prescriptions: Azithromycin [Zithromax 250mg Tablets -] 250 mg PO UTDICT #6 tab - Referrals Referrals: Siomara Erickson MD [Primary Care Provider] - - Patient Instructions Printed Discharge Instructions: Asthma -- Adult Additional Instructions: Rest, drink lots of fluids: Teas, water, soups, Pedialyte Saltwater gargles Steamy showers/seem to face break up mucus Avoid contact with others until fevers and cough resolved Lots of handwashing and good hygiene Continue [id number] medications for symptomatic relief Tylenol or Motrin for fever and pain take azithromycin as directed Followup with private physician in one to 2 days as needed Return to emergency department for worsened symptoms, fevers, dehydration - Post Discharge Activity
[2017-12-04] MEDS: ALBUTEROL SO4 2.5/IPRATROPIUM 0.5 INH SOL 3 ML VIAL.NEB. NEB SCH ×3 (19:20→20:07)
[2017-12-04] MEDS ORDERED: predniSONE 20 MG TABLET (UD) PO ONE (19:45)
[2017-12-05] MEDS ORDERED: predniSONE 20 MG TABLET (UD) PO ONE ×2 (19:13)
== END 2017-12-04 20:11 | disposition home or self-care (01) ==
LOC: JER 18:46 → JERFT 18:46
DX: J20.9 Acute bronchitis, unspecified (principal); J45.909 Unspecified asthma, uncomplicated
CPT/HCPCS: 71046-TC-FY; 99281-25

== ENCOUNTER 2018-06-16 20:28 | Emergency (ER) | payer OTHER ==
[2018-06-16 20:38] VITALS: BP 120/74; PULSE 81; TEMP 98.1; BMI 25.4
--- NOTE | 2018-06-16 20:42 | PDOC ---
Rapid Medical Evaluation Chief Complaint: Pain Time Seen by Provider: 06/16/18 20:40 Medical Evaluation: Allergies Allergy/AdvReac Type Severity Reaction Status Date / Time No Known Allergies Allergy Verified 06/16/18 20:38 Vital Signs Temp Pulse Resp BP Pulse Ox 98.1 F 81 16 120/74 100 06/16/18 20:33 06/16/18 20:33 06/16/18 20:33 06/16/18 20:33 06/16/18 20:33 06/16/18 20:40 I have performed a brief in-person evaluation of this patient. The patient presents with a chief complaint of: 5wks with cramping lower abdominal pain and vaginal spotting Pertinent physical exam findings: A&O x 3. I have ordered the following: UA,Ucx. CBC, CMP, beta hcg, T&S The patient will proceed to the ED for further evaluation. Discharge Disposition - Diagnosis Threatened - Referrals Referrals: Siomara Erickson MD [Primary Care Provider] - - Patient Instructions - Post Discharge Activity
[2018-06-16 21:03] LABS: BASO % 0.7 % (0-2.0); EOS % 1.6 % (0-4.5); HEMATOCRIT 37.2 % (32.4-45.2); HEMOGLOBIN 12.3 GM/dL (10.7-15.3); LYMPH % 34.2 % (8-40); MCHC 33.1 g/dl (32.0-36.0); MEAN CELL VOLUME 93.9 fl (80-96); MEAN PLT VOLUME 7.9 fl (7.5-11.1); MONO % 4.9 % (3.8-10.2); NEUT % 58.6 % (42.8-82.8); PLATELET COUNT 238 K/MM3 (134-434); RBC 3.96 M/mm3 (3.60-5.2); RDW 13.6 % (11.6-15.6); WHITE BLOOD COUNT 6.9 K/mm3 (4.0-10.0)
[2018-06-16 21:47] LABS: URINE APPEARANCE CLEAR; URINE BILIRUBIN NEGATIVE (<2.0 mg/dL); URINE COLOR LTYELLOW; URINE GLUCOSE (UA) NEGATIVE (NEGATIVE); URINE KETONE NEGATIVE (NEGATIVE); URINE LEUK ESTERASE NEGATIVE (NEGATIVE); URINE NITRITE NEGATIVE (NEGATIVE); URINE PROTEIN NEGATIVE (NEGATIVE); URINE UROBILINOGEN NEGATIVE mg/dL (0.2-1.0)
[2018-06-16 21:59] LABS: ALBUMIN 3.6 g/dl (3.4-5.0); ALK PHOS 62 U/L (45-117); ANION GAP 9 MMOL/L (8-16); BILIRUBIN,TOTAL 0.4 mg/dL (0.2-1); BLOOD UREA NITROGEN 14 mg/dL (7-18); CALCIUM 8.3 mg/dL (8.5-10.1); CHLORIDE 107 mmol/L (98-107); CO2 25 mmol/L (21-32); CREATININE 0.7 mg/dL (0.55-1.3); GLUCOSE,RANDOM 141 mg/dL (74-106); SGOT/AST 13 U/L (15-37); SGPT/ALT 18 U/L (13-61); SODIUM 141 mmol/L (136-145); TOT PROT 7.4 g/dl (6.4-8.2)
--- NOTE | 2018-06-16 22:34 | PDOC ---
History of Present Illness - General History Source: Patient Exam Limitations: No Limitations - History of Present Illness Initial Comments: 06/16/18 22:48 The patient is a 43 year old 5 weeks female A4, with no significant past medical history, who presents to the emergency department with , vaginal spotting and cramping. Patient describes her pain as constant and localized to her suprapubic area. 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 She is receiving care at [address] [place] [address]. She denies recent fevers, chills, headache or dizziness. She denies recent nausea, vomit, diarrhea or constipation. She denies recent dysuria, frequency, urgency or hematuria. She denies recent chest pain or shortness of breath. Allergies: NKDA Past surgical history: Devon mario (2004) Primary Care Physician: Dr. Erickson <Bernardo Ballesteros - Last Filed: 06/16/18 22:48> <Cally Miles - Last Filed: 06/16/18 23:56> - General Chief Complaint: Pain Stated Complaint: 5 WEEKS WITH ABD PAIN Time Seen by Provider: 06/16/18 20:40 Past History <Bernardo Ballesteros - Last Filed: 06/16/18 22:48> - Past Medical History Anemia: No Asthma: Yes Cancer: No Cardiac Disorders: No CVA: No COPD: No CHF: No Dementia: No Diabetes: No GI Disorders: No Disorders: No HTN: No Hypercholesterolemia: No Liver Disease: No Seizures: No Thyroid Disease: No - Surgical History Abdominal Surgery: Yes (ABDOMINOPLASTY) Appendectomy: No Cardiac Surgery: No Cholecystectomy: No Lung Surgery: No Neurologic Surgery: No Orthopedic Surgery: No - Family Disease History Family Disease History: Diabetes: Mother - Reproductive History (#): 2 Para: 1 Cervical CA: No Dysfunctional Uterine Bleeding: No Ectopic : No Endometrial CA: No Polycystic Ovaries: No Therapeutic (s) & number: No Tubal Ligation: No - Immunization History Immunization Up to Date: Yes - Suicide/Smoking/Psychosocial Hx Smoking History: Never smoked Have you smoked in the past 12 months: No Information on smoking cessation initiated: No Hx Alcohol Use: No Drug/Substance Use Hx: No Substance Use Type: None Hx Substance Use Treatment: No <Cally Miles - Last Filed: 06/16/18 23:56> - Past Medical History Allergies/Adverse Reactions: Allergies Allergy/AdvReac Type Severity Reaction Status Date / Time No Known Allergies Allergy Verified 06/16/18 20:38 Home Medications: Ambulatory Orders Azithromycin [Zithromax 250mg Tablets -] 250 mg PO UTDICT #6 tab 12/04/17 Review of Systems - Review of Systems Able to Perform ROS?: Yes Comments:: 06/16/18 22:49 CONSTITUTIONAL: Absent: fever, no chills, no fatigue EYES: Absent: visual changes ENT: Absent: ear pain, no sore throat CARDIOVASCULAR: Absent: chest pain, no palpitations RESPIRATORY: Absent: cough, no SOB GI: Absent: abdominal pain, no nausea, no vomiting, no constipation, no diarrhea GENITOURINARY: Present: Vaginal cramping. Vaginal spotting. Absent: dysuria, no frequency, no hematuria MUSKULOSKELETAL: Absent: back pain, no arthralgia, no myalgia SKIN: Absent: rash NEURO: Absent: headache All Other Systems: Reviewed and Negative <Bernardo Ballesteros - Last Filed: 06/16/18 22:48> *Physical Exam - Vital Signs Last Vital Signs Temp Pulse Resp BP Pulse Ox 98.1 F 81 16 120/74 100 06/16/18 20:33 06/16/18 20:33 06/16/18 20:33 06/16/18 20:33 06/16/18 20:33 - Physical Exam Comments: 06/16/18 22:49 GENERAL: Well-appearing, well-nourished. No apparent distress. HEENT: Normocephalic, atraumatic. PERRL, EOM intact. CARDIOVASCULAR: Normal S1, S2. Regular rate and rhythm. PULMONARY: Clear to auscultation bilaterally. +ABDOMEN: Gravid. Soft, non-distended, non-tender. EXTREMITIES: Normal ROM in all four extremities. No gross deformities. SKIN: Warm, dry. No rash NEUROLOGICAL: No focal neurological deficits. <Bernardo Ballesteros - Last Filed: 06/16/18 22:48> - Vital Signs Last Vital Signs Temp Pulse Resp BP Pulse Ox 98.1 F 81 16 120/74 100 06/16/18 20:33 06/16/18 20:33 06/16/18 20:33 06/16/18 20:33 06/16/18 20:33 <JdCally - Last Filed: 06/16/18 23:56> ED Treatment Course - LABORATORY CBC & Chemistry Diagram: 06/16/18 20:50 06/16/18 20:50 - ADDITIONAL ORDERS Additional order review: Laboratory Results 06/16/18 06/16/18 20:50 20:50 Sodium 141 Potassium 4.0 Chloride 107 Carbon Dioxide 25 Anion Gap 9 BUN 14 Creatinine 0.7 Creat Clearance w eGFR > 60 Random Glucose 141 H Calcium 8.3 L Total Bilirubin 0.4 AST 13 L ALT 18 Alkaline Phosphatase 62 Total Protein 7.4 Albumin 3.6 Beta HCG, Quant 4235.4 Urine Color Ltyellow Urine Appearance Clear Urine pH 5.0 D Ur Specific [place] 1.017 Urine Protein Negative Urine Glucose (UA) Negative Urine Ketones Negative Urine Blood Negative Urine Nitrite Negative Urine Bilirubin Negative Urine Urobilinogen Negative Ur Leukocyte Esterase Negative 06/16/18 20:50 RBC 3.96 MCV 93.9 MCHC 33.1 RDW 13.6 MPV 7.9 Neutrophils % 58.6 D Lymphocytes % 34.2 D Monocytes % 4.9 Eosinophils % 1.6 Basophils % 0.7 <Bernardo Ballesteros - Last Filed: 06/16/18 22:48> - LABORATORY CBC & Chemistry Diagram: 06/16/18 20:50 06/16/18 20:50 - ADDITIONAL ORDERS Additional order review: Laboratory Results 06/16/18 06/16/18 20:50 20:50 Sodium 141 Potassium 4.0 Chloride 107 Carbon Dioxide 25 Anion Gap 9 BUN 14 Creatinine 0.7 Creat Clearance w eGFR > 60 Random Glucose 141 H Calcium 8.3 L Total Bilirubin 0.4 AST 13 L ALT 18 Alkaline Phosphatase 62 Total Protein 7.4 Albumin 3.6 Beta HCG, Quant 4235.4 Urine Color Ltyellow Urine Appearance Clear Urine pH 5.0 D Ur Specific [place] 1.017 Urine Protein Negative Urine Glucose (UA) Negative Urine Ketones Negative Urine Blood Negative Urine Nitrite Negative Urine Bilirubin Negative Urine Urobilinogen Negative Ur Leukocyte Esterase Negative 06/16/18 20:50 RBC 3.96 MCV 93.9 MCHC 33.1 RDW 13.6 MPV 7.9 Neutrophils % 58.6 D Lymphocytes % 34.2 D Monocytes % 4.9 Eosinophils % 1.6 Basophils % 0.7 - RADIOLOGY Radiology Studies Ordered: Category Date Time Status TRANSVAGINAL US PREG [US] Stat Ultrasound 06/16/18 22:22 Ordered <Cally Miles - Last Filed: 06/16/18 23:56> Medical Decision Making - Medical Decision Making 06/16/18 22:32 43-year-old female presents with pelvic cramping and vaginal spotting. LMP mid April 2018 Past medical history significant for 8 para 3, miscarriages 4 Past surgical history - devon mario body make up artist is at [address] [place] [address] 06/16/18 23:52 Transvaginal ultrasound . Single intrauterine gestational sac measuring less than 5 weeks of gestation. A tiny yolk sac is seen Correlation w serial quantitative beta hCGs and close ultrasound follow-up is required imp threatened AB <Cally Miles - Last Filed: 06/16/18 23:56> *DC/Admit/Observation/Transfer - Attestations Scribe Attestion: 06/16/18 22:49 Documentation prepared by Bernardo Ballesteros, acting as biomedical engineering aide for Cally Miles MD. <Bernardo Ballesteros - Last Filed: 06/16/18 22:48> <Cally Miles - Last Filed: 06/16/18 23:56> Diagnosis at time of Disposition: Threatened - Discharge Dispostion Disposition: HOME Condition at time of disposition: Stable - Referrals Referrals: Siomara Erickson MD [Primary Care Provider] - - Patient Instructions Printed Discharge Instructions: DI for Threatened Additional Instructions: please follow up with your body make up artist in one week for repeat pelvic ultrasound and BHCG - Post Discharge Activity
== END 2018-06-17 00:04 | disposition home or self-care (01) ==
LOC: JER 20:28
DX: O26.891 Other specified pregnancy related conditions, first trimester (principal); O20.0 Threatened abortion; Z3A.01 Less than 8 weeks gestation of pregnancy
CPT/HCPCS: 36415; 76817-TC; 80053; 81003; 84702; 85025; 86850; 86900; 86901; 87086; 87491; 87591; 99281-25

== ENCOUNTER 2018-06-22 09:53 | Emergency (ER) | payer OTHER ==
[2018-06-22 10:29] VITALS: BP 117/64; PULSE 82; TEMP 98.8; BMI 23.0
--- NOTE | 2018-06-22 11:25 | PDOC ---
History of Present Illness - General Chief Complaint: Revisit,Burn Stated Complaint: REPEAT ULTRASOUND Time Seen by Provider: 06/22/18 11:21 History Source: Patient Exam Limitations: No Limitations - History of Present Illness Initial Comments: 06/22/18 11:24 Was seen here 06/16 for abdominal cramping and vaginal bleeding . Beta hCG at that time was 4235, and ultrasound revealed an intrauterine with no pole or heartbeat. Deemed to be approximate 5 weeks of . care was received at [facility], but patient has suffered multiple miscarriages past 2 years. LMP May 20. SInce last Friday patient reports bleeding stopped but still has cramping, no fevers, no dysuria/ 06/22/18 11:26 06/22/18 11:26 06/22/18 11:54 Timing/Duration: unsure Severity: mild, moderate Past History - Travel Traveled outside of the country in the last 30 days: No Close contact w/someone who was outside of country & ill: No - Past Medical History Allergies/Adverse Reactions: Allergies Allergy/AdvReac Type Severity Reaction Status Date / Time No Known Allergies Allergy Verified 06/22/18 10:26 Home Medications: Ambulatory Orders NK [No Known Home Medication] 06/22/18 Anemia: No Asthma: Yes Cancer: No Cardiac Disorders: No CVA: No COPD: No CHF: No Dementia: No Diabetes: No GI Disorders: No Disorders: No HTN: No Hypercholesterolemia: No Liver Disease: No Seizures: No Thyroid Disease: No - Surgical History Abdominal Surgery: Yes (ABDOMINOPLASTY) Appendectomy: No Cardiac Surgery: No Cholecystectomy: No Lung Surgery: No Neurologic Surgery: No Orthopedic Surgery: No - Family Disease History Family Disease History: Diabetes: Mother - Reproductive History (#): 2 Para: 1 Cervical CA: No Dysfunctional Uterine Bleeding: No Ectopic : No Endometrial CA: No Polycystic Ovaries: No Therapeutic (s) & number: No Tubal Ligation: No - Immunization History Immunization Up to Date: Yes - Suicide/Smoking/Psychosocial Hx Smoking History: Never smoked Have you smoked in the past 12 months: No Hx Alcohol Use: No Drug/Substance Use Hx: No Substance Use Type: None Hx Substance Use Treatment: No Review of Systems - Review of Systems Able to Perform ROS?: Yes Is the patient limited Amharic proficient: Yes Constitutional: Yes: See HPI, Loss of Appetite. No: Symptoms Reported, Fever, Malaise HEENTM: Yes: See HPI. No: Symptoms Reported, Eye Pain Respiratory: No: Symptoms reported ABD/GI: Yes: Symptoms Reported, Abdominal cramping : Yes: See HPI. No: Symptoms Reported Musculoskeletal: No: Symptoms Reported All Other Systems: Reviewed and Negative *Physical Exam - Vital Signs Last Vital Signs Temp Pulse Resp BP Pulse Ox 98.8 F 82 16 117/64 99 06/22/18 10:26 06/22/18 10:26 06/22/18 10:26 06/22/18 10:06/22/18 10:26 - Physical Exam General Appearance: Yes: Nourished, Appropriately Dressed, Apparent Distress, Mild Distress HEENT: positive: JOSE RAFAEL, Normal ENT Inspection, TMs Normal, Pharynx Normal, Rhinorrhea Neck: positive: Supple. negative: Lymphadenopathy (R), Lymphadenopathy (L) Respiratory/Chest: positive: Lungs Clear Cardiovascular: positive: Regular Rhythm Gastrointestinal/Abdominal: positive: Normal Bowel Sounds, Tender (mild suprapubic tenderness/ no rebound or guarding) Extremity: positive: Normal Capillary Refill, Normal Inspection, Normal Range of Motion Integumentary: positive: Normal Color, Dry, Warm, Pale Neurologic: positive: forestry instructor II-XII NML intact, Fully Oriented, Alert, Normal Mood/ Affect, Normal Response, Motor Strength 5/5 Medical Decision Making - Medical Decision Making 06/22/18 13:19 [id number], US reveals intrauterine pregnacy but no pole identified. 06/22/18 14:20 Attempts to discuss findings with Halie Chavez, FOREST FIRE MANAGEMENT OFFICER [phone], with 06/22/18 14:28 06/22/18 14:[address] Marcus. She suggested is prob Blighted Ovum, and will need followup in office tomorrow. CALL [phone] for appointment to see MOLDING PLASTERER Discussed pplan with patient and understands need to be seen for further evaluation and treatment. *DC/Admit/Observation/Transfer Diagnosis at time of Disposition: Threatened - Discharge Dispostion Disposition: HOME Condition at time of disposition: Stable Decision to Admit order: No - Referrals Referrals: Siomara Erickson MD [Primary Care Provider] - - Patient Instructions Printed Discharge Instructions: DI for Miscarriage Additional Instructions: Rest, Drink LOTS of fluids; water , soups, teas No heavy lifting or strenous activity until cleared Call for appt to be seen in OB office tomorrow for further treatment and possible proceedures. Return for fevers/Pain/ worse bleeding or fevers. - Post Discharge Activity Forms/Work/School Notes: Back to Work
== END 2018-06-22 14:47 | disposition home or self-care (01) ==
LOC: JER 09:53 → JERFT 09:53
DX: O26.891 Other specified pregnancy related conditions, first trimester (principal); O20.0 Threatened abortion; Z3A.01 Less than 8 weeks gestation of pregnancy
CPT/HCPCS: 36415; 76817-TC; 84702; 99281-25

== ENCOUNTER 2018-09-23 12:56 | Emergency (ER) | payer OTHER ==
[2018-09-23 13:05] VITALS: BP 109/69; PULSE 84; TEMP 98.6; BMI 25.9
--- NOTE | 2018-09-23 13:56 | PDOC ---
History of Present Illness - General Chief Complaint: Pain, Acute Stated Complaint: 10 WK PREG / ABD PAIN Time Seen by Provider: 09/23/18 13:55 - History of Present Illness Initial Comments: 43 year old female [id number] 10 weeks by US presenting with lower abdominal pain for the past day. States that she experienced lower abdominal cramping in her bilateral lower abdominal quadrants without nausea, vomiting, urinary symptoms, vaginal discharge, fever, SOB< or other symptoms. She had a miscarriage back in June and became again shortly after. She had her US 2 weeks ago on which she had a healthy 8 week IUP. She is here because she knows she is high risk and wants to make sure everything is OK. She is on vitamins and does not smoke or drink. 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 09/23/18 15:04 Past History - Past Medical History Allergies/Adverse Reactions: Allergies Allergy/AdvReac Type Severity Reaction Status Date / Time No Known Allergies Allergy Verified 06/22/18 10:26 Home Medications: Ambulatory Orders No122/Iron/Folic Acid [ Multi Tablet] 1 each PO DAILY 09/23/18 Anemia: No Asthma: Yes Cancer: No Cardiac Disorders: No CVA: No COPD: No CHF: No Dementia: No Diabetes: No GI Disorders: No Disorders: No HTN: No Hypercholesterolemia: No Liver Disease: No Seizures: No Thyroid Disease: No - Surgical History Abdominal Surgery: Yes (ABDOMINOPLASTY) Appendectomy: No Cardiac Surgery: No Cholecystectomy: No Lung Surgery: No Neurologic Surgery: No Orthopedic Surgery: No - Family Disease History Family Disease History: Diabetes: Mother - Reproductive History Is Patient Now?: Yes (10 weeks) (#): 7 Para: 3 Cervical CA: No Dysfunctional Uterine Bleeding: No Ectopic : No Endometrial CA: No Polycystic Ovaries: No Therapeutic (s) & number: No Tubal Ligation: No Spontaneous : 3 - Immunization History Immunization Up to Date: Yes - Suicide/Smoking/Psychosocial Hx Smoking History: Never smoked Have you smoked in the past 12 months: No Information on smoking cessation initiated: No Hx Alcohol Use: No Drug/Substance Use Hx: No Substance Use Type: None Hx Substance Use Treatment: No Review of Systems - Review of Systems Constitutional: No: Chills, Diaphoresis, Fever HEENTM: No: Eye Pain, Blurred Vision, Tearing Respiratory: No: Cough, Orthopnea, Shortness of Breath, Wheezing Cardiac (ROS): No: Edema, Irregular Heart Rate ABD/GI: No: Abdominal Distended, Diarrhea, Nausea, Vomiting : No: Burning, Dysuria, Discharge Musculoskeletal: Yes: Back Pain. No: Joint Pain, Muscle Weakness Integumentary: No: Bruising, Erythema, Flushing, Lesions Neurological: No: Headache, Numbness, Paresthesia Psychiatric: No: Anxiety, Depression Endocrine: No: Flushing, Intolerance to Cold, Intolerance to Heat Hematologic/Lymphatic: No: Anemia, Blood Clots, Easy Bleeding *Physical Exam - Vital Signs Last Vital Signs Temp Pulse Resp BP Pulse Ox 98.6 F 84 18 109/69 100 09/23/18 13:03 09/23/18 13:03 09/23/18 13:03 09/23/18 13:03 09/23/18 13:03 - Physical Exam General Appearance: Yes: Nourished, Appropriately Dressed. No: Apparent Distress HEENT: positive: EOMI, JOSE RAFAEL, Normal ENT Inspection, Normal Voice Neck: positive: Trachea midline, Normal Thyroid, Supple. negative: Tender, Rigid Respiratory/Chest: positive: Lungs Clear, Normal Breath Sounds. negative: Chest Tender, Respiratory Distress Cardiovascular: positive: Regular Rhythm, Regular Rate Female Pelvic Exam: positive: normal external exam, cervical os closed, normal adnexa, normal size ovaries. negative: CMT, discharge, lesions, Bartholin mass Gastrointestinal/Abdominal: positive: Normal Bowel Sounds, Flat, Soft. negative : Tender Lymphatic: negative: Adenopathy, Tenderness Musculoskeletal: positive: Normal Inspection. negative: CVA Tenderness Extremity: positive: Normal Capillary Refill, Normal Inspection, Normal Range of Motion. negative: Tender Integumentary: positive: Normal Color, Dry, Warm Neurologic: positive: Fully Oriented, Alert, Normal Mood/Affect, Normal Response , Motor Strength 5/5 Moderate Sedation - Procedure Monitoring Vital Signs: Procedure Monitoring Vital Signs Temperature 98.6 F 09/23/18 13:03 Pulse Rate 84 09/23/18 13:03 Respiratory Rate 18 09/23/18 13:03 Blood Pressure 109/69 09/23/18 13:03 O2 Sat by Pulse Oximetry (%) 100 09/23/18 13:03 ED Treatment Course - LABORATORY CBC & Chemistry Diagram: 09/23/18 13:45 09/23/18 13:45 Medical Decision Making - Medical Decision Making 43 year old female w10 w by US two weeks prior. Labs WNL, UA negative and Transabdominal at bedside demonstrating healthy IUP with HR 160 and good motion. TVUS corroborating this with addition iof right hemorrhagic corpus luteal cyst. Unclear cause of her pain but not concerning for threatened AB given no bleeding. Patient feeling well and will go home with follow up instructions and return precautions as well cloak room attendant follow up. 09/23/18 15:09 *DC/Admit/Observation/Transfer Diagnosis at time of Disposition: Abdominal pain during in first trimester, Hemorrhage of corpus luteum cyst - Discharge Dispostion Disposition: HOME Condition at time of disposition: Improved Decision to Admit order: No - Referrals Referrals: Siomara Erickson MD [Primary Care Provider] - Halie Chavez CNM [Certified Nurse Pattern Changer And Repairer] - - Patient Instructions Printed Discharge Instructions: DI for Abdominal Pain -- Early Additional Instructions: Your is normal. You have a cyst in your ovary. Please use Tylenol for the pain at home, Please follow up with Dr. Chavez next week for further recommendations. Please return to the ED if you have new or worsening symptoms. - Post Discharge Activity
[2018-09-23 14:07] LABS: BASO % 0.6 % (0-2.0); EOS % 1.2 % (0-4.5); HEMATOCRIT 37.8 % (32.4-45.2); HEMOGLOBIN 12.8 GM/dL (10.7-15.3); LYMPH % 22.2 % (8-40); MCH 32.2 pg (25.7-33.7); MCHC 33.8 g/dl (32.0-36.0); MEAN CELL VOLUME 95.3 fl (80-96); MEAN PLT VOLUME 8.2 fl (7.5-11.1); MONO % 6.1 % (3.8-10.2); NEUT % 69.9 % (42.8-82.8); PLATELET COUNT 218 K/MM3 (134-434); RBC 3.97 M/mm3 (3.60-5.2); RDW 13.5 % (11.6-15.6)
[2018-09-23 14:12] LABS: URINE APPEARANCE SLCLOUDY; URINE BILIRUBIN NEGATIVE (<2.0 mg/dL); URINE COLOR YELLOW; URINE GLUCOSE (UA) NEGATIVE (NEGATIVE); URINE KETONE NEGATIVE (NEGATIVE); URINE LEUK ESTERASE NEGATIVE (NEGATIVE); URINE NITRITE NEGATIVE (NEGATIVE); URINE PROTEIN NEGATIVE (NEGATIVE); URINE UROBILINOGEN NEGATIVE mg/dL (0.2-1.0)
--- NOTE | 2018-09-23 14:33 | PDOC ---
Attending Attestation - HPI HPI: 09/23/18 15:37 The patient is a 43 year old female [id number], 10 weeks by US presenting to the emergency department with lower abdominal pain for the past day. She states she experienced bilateral lower abdominal cramping. She reportedly had a miscarriage in June of 2018 and states she became again shortly after. She states she was 8 week IUP on an US 2 weeks ago. She denies chest pain, palpitations, SOB, dizziness. She denies hematuria. She denies vaginal bleeding. She denies toxic habits. She is taking vitamins Documentation prepared by Mary Anne Freed, acting as medical supervisor for Aurora Katz MD <Mary Anne Freed - Last Filed: 09/23/18 15:37> - Resident Resident Name: Jeanne Conway - ED Attending Attestation I have performed the following: I have examined & evaluated the patient, The case was reviewed & discussed with the resident, I agree w/resident's findings & plan, Exceptions are as noted - Physicial Exam PE: 09/23/18 16:20 GENERAL: The patient is in no acute distress. ENT: Ears normal, nares patent, oropharynx clear without exudates. Moist mucous membranes. NECK: Normal range of motion, supple without lymphadenopathy LUNGS: Breath sounds equal, clear to auscultation bilaterally. No wheezes, and no crackles. HEART:Regular rate and rhythm, normal S1 and S2 without murmur, rub or gallop. ABDOMEN: Soft, mild lower abdominal tenderness, no involuntary guarding, no rebound EXTREMITIES: Normal range of motion, no edema. NEUROLOGICAL: Cranial nerves II through XII grossly intact. Normal speech. No focal neurological deficits. MUSCULOSKELETAL: Back non-tender to palpation SKIN: Warm, Dry, normal turgor, no rashes or lesions noted. - Medical Decision Making 09/23/18 16:21 Laboratory Tests 09/23/18 09/23/18 09/23/18 13:45 13:45 13:45 WBC 8.0 Hgb 12.8 Hct 37.8 Plt Count 218 Neutrophils % 69.9 Lymphocytes % 22.2 D BUN 12 Creatinine 0.6 Beta HCG, Quant 14642.9 Urine Ketones Negative Urine Blood Negative Urine Nitrite Negative Ur Leukocyte Esterase Negative US: single live IUP, 10 weeks 2 days Right Corpus leuteum cyst (hemorrhagic) Will discharge to home Follow up with [facility] Clinical Impression: abdominal pain associated with early , initial presentation <Aurora Katz - Last Filed: 09/23/18 16:24>
[2018-09-23 15:04] LABS: ALBUMIN 3.3 g/dl (3.4-5.0); ALK PHOS 55 U/L (45-117); ANION GAP 6 MMOL/L (8-16); BILIRUBIN,TOTAL 0.2 mg/dL (0.2-1); BLOOD UREA NITROGEN 12 mg/dL (7-18); CALCIUM 8.6 mg/dL (8.5-10.1); CHLORIDE 104 mmol/L (98-107); CO2 25 mmol/L (21-32); CREATININE 0.6 mg/dL (0.55-1.3); GLUCOSE,RANDOM 80 mg/dL (74-106); POTASSIUM 4.1 mmol/L (3.5-5.1); SGOT/AST 14 U/L (15-37); SGPT/ALT 18 U/L (13-61); SODIUM 135 mmol/L (136-145); TOT PROT 7.1 g/dl (6.4-8.2)
== END 2018-09-23 16:25 | disposition home or self-care (01) ==
LOC: JER 12:56
DX: O26.891 Other specified pregnancy related conditions, first trimester (principal); Z3A.10 10 weeks gestation of pregnancy; N83.10 Corpus luteum cyst of ovary, unspecified side
CPT/HCPCS: 36415; 76815-TC; 80053; 81003; 84702; 85025; 86850; 86900; 86901; 87086; 99281-25

== ENCOUNTER 2018-10-23 20:16 | Emergency (ER) | payer OTHER ==
[2018-10-23] MEDS ORDERED: ONDANSETRON *ODT* 4 MG TABLET SL ONE (20:37)
--- NOTE | 2018-10-23 20:37 | PDOC ---
Rapid Medical Evaluation Time Seen by Provider: 10/23/18 20:34 Medical Evaluation: Allergies Allergy/AdvReac Type Severity Reaction Status Date / Time No Known Allergies Allergy Verified 06/22/18 10:26 10/23/18 20:34 I have performed a brief in-person evaluation of this patient. The patient presents with a chief complaint of: 15 weeks gravid presents for evaluation of vomiting x1 day Pertinent physical exam findings:NAD I have ordered the following: Zofran cbc, cmp PIV The patient will proceed to the ED for further evaluation. Discharge Disposition - Diagnosis Vomiting - Referrals - Patient Instructions - Post Discharge Activity
[2018-10-23 20:38] VITALS: BP 124/62; PULSE 94; TEMP 98.6; BMI 26.5
[2018-10-23] MEDS ORDERED: ONDANSETRON *ODT* 4 MG TABLET ONE (20:39)
[2018-10-23 20:53] LABS: BASO % 0.4 % (0-2.0); EOS % 0.5 % (0-4.5); HEMATOCRIT 36.4 % (32.4-45.2); HEMOGLOBIN 12.8 GM/dL (10.7-15.3); LYMPH % 7.9 % (8-40); MCHC 35.1 g/dl (32.0-36.0); MEAN CELL VOLUME 94.2 fl (80-96); MEAN PLT VOLUME 7.8 fl (7.5-11.1); MONO % 3.6 % (3.8-10.2); NEUT % 87.6 % (42.8-82.8); PLATELET COUNT 191 K/MM3 (134-434); RBC 3.86 M/mm3 (3.60-5.2); RDW 13.3 % (11.6-15.6); WHITE BLOOD COUNT 8.1 K/mm3 (4.0-10.0)
[2018-10-23 21:21] LABS: ALK PHOS 51 U/L (45-117); ANION GAP 9 MMOL/L (8-16); BILIRUBIN,TOTAL 0.8 mg/dL (0.2-1); BLOOD UREA NITROGEN 8 mg/dL (7-18); CALCIUM 8.4 mg/dL (8.5-10.1); CHLORIDE 105 mmol/L (98-107); CO2 21 mmol/L (21-32); CREATININE 0.5 mg/dL (0.55-1.3); GLUCOSE,RANDOM 131 mg/dL (74-106); POTASSIUM 3.5 mmol/L (3.5-5.1); SGOT/AST 18 U/L (15-37); SGPT/ALT 17 U/L (13-61); SODIUM 135 mmol/L (136-145); TOT PROT 6.6 g/dl (6.4-8.2)
--- NOTE | 2018-10-23 22:02 | PDOC ---
History of Present Illness - General Chief Complaint: Nausea Stated Complaint: NAUSEA(15 WEEKS ) Time Seen by Provider: 10/23/18 20:34 History Source: Patient Exam Limitations: No Limitations - History of Present Illness Initial Comments: 10/23/18 21:52 43 yo female currently 15 weeks , PMH of asthma presents to the ED for 1 day of NB/NB vomiting and 3 weeks of bilateral upper quadrant abdominal pain. Pt saw her MARKETING INFORMATION COORDINATOR (Dr. Chavez) this am for complaints, doppler done with normal FHR and pt told if symptoms persist to go to the ER. Pt states she had 4 episodes of vomiting, denies sick contacts, recent travel or eating new/ different foods. Pain is intermittent, starts in the right upper quadrant and moves to the left, described as sharp and not associated with meals. Denies vaginal s/s, changes in bowel or bladder habits, F/C, back pain, CP or SOB Pt received sublingual zofran with improvement of s/s, currently denies abdominal pain and has no further complaints Past History - Past Medical History Allergies/Adverse Reactions: Allergies Allergy/AdvReac Type Severity Reaction Status Date / Time No Known Allergies Allergy Verified 06/22/18 10:26 Home Medications: Ambulatory Orders No122/Iron/Folic Acid [ Multi Tablet] 1 each PO DAILY 09/23/18 Ondansetron [Zofran *Odt*] 8 mg SL BID 7 Days #14 od.tablet 10/23/18 Anemia: No Asthma: Yes Cancer: No Cardiac Disorders: No CVA: No COPD: No CHF: No Dementia: No Diabetes: No GI Disorders: No Disorders: No HTN: No Hypercholesterolemia: No Liver Disease: No Seizures: No Thyroid Disease: No - Surgical History Abdominal Surgery: Yes (ABDOMINOPLASTY) Appendectomy: No Cardiac Surgery: No Cholecystectomy: No Lung Surgery: No Neurologic Surgery: No Orthopedic Surgery: No - Family Disease History Family Disease History: Diabetes: Mother - Reproductive History (#): 7 Para: 3 Cervical CA: No Dysfunctional Uterine Bleeding: No Ectopic : No Endometrial CA: No Polycystic Ovaries: No Therapeutic (s) & number: No Tubal Ligation: No Spontaneous : 3 - Immunization History Immunization Up to Date: Yes - Suicide/Smoking/Psychosocial Hx Smoking History: Never smoked Have you smoked in the past 12 months: No Information on smoking cessation initiated: No Hx Alcohol Use: No Drug/Substance Use Hx: No Substance Use Type: None Hx Substance Use Treatment: No Review of Systems - Review of Systems Constitutional: No: Chills, Fever Respiratory: No: Shortness of Breath Cardiac (ROS): No: Chest Pain ABD/GI: Yes: Nausea, Vomiting, Other (bilateral upper quad abdominal pain) : No: Burning, Dysuria, Discharge, Frequency, Flank Pain Musculoskeletal: No: Back Pain Neurological: No: Numbness, Paresthesia *Physical Exam - Vital Signs Last Vital Signs Temp Pulse Resp BP Pulse Ox 98.6 F 94 H 18 124/62 100 10/23/18 20:35 10/23/18 20:35 10/23/18 20:35 10/23/18 20:35 10/23/18 20:35 - Physical Exam General Appearance: Yes: Nourished, Appropriately Dressed. No: Apparent Distress HEENT: positive: EOMI Respiratory/Chest: positive: Lungs Clear Cardiovascular: positive: Regular Rhythm, Regular Rate, S1, S2. negative: Edema , JVD, Murmur Vascular Pulses: Dorsalis-Pedis (R): 4+, Doralis-Pedis (L): 4+ Gastrointestinal/Abdominal: positive: Normal Bowel Sounds, Soft. negative: Pulsatile Mass, Guarding, Rebound, Tenderness Musculoskeletal: positive: Normal Inspection. negative: CVA Tenderness Extremity: positive: Normal Capillary Refill. negative: Coldness, Cyanosis Integumentary: positive: Normal Color, Dry, Warm Neurologic: positive: Fully Oriented, Alert, Normal Mood/Affect Moderate Sedation - Procedure Monitoring Vital Signs: Procedure Monitoring Vital Signs Temperature 98.6 F 10/23/18 20:35 Pulse Rate 94 H 10/23/18 20:35 Respiratory Rate 18 10/23/18 20:35 Blood Pressure 124/62 10/23/18 20:35 O2 Sat by Pulse Oximetry (%) 100 10/23/18 20:35 ED Treatment Course - LABORATORY CBC & Chemistry Diagram: 10/23/18 20:44 10/23/18 20:44 - ADDITIONAL ORDERS Additional order review: Laboratory Results 10/23/18 20:44 Sodium 135 L Potassium 3.5 Chloride 105 Carbon Dioxide 21 Anion Gap 9 BUN 8 Creatinine 0.5 L Creat Clearance w eGFR > 60 Random Glucose 131 H Calcium 8.4 L Total Bilirubin 0.8 AST 18 ALT 17 Alkaline Phosphatase 51 Total Protein 6.6 Albumin 3.0 L 10/23/18 20:44 RBC 3.86 MCV 94.2 MCHC 35.1 RDW 13.3 MPV 7.8 Neutrophils % 87.6 H D Lymphocytes % 7.9 L D Monocytes % 3.6 L Eosinophils % 0.5 Basophils % 0.4 - RADIOLOGY Radiology Studies Ordered: Category Date Time Status TRANSVAGINAL US PREG [US] Stat Ultrasound 10/23/18 21:29 Ordered - Medications Given in the ED: ED Medications Discontinued Medications Generic Name Dose Route Start Last Admin Trade Name Freq PRN Reason Stop Dose Admin Ondansetron HCl 4 mg 10/23/18 20:37 10/23/18 20:45 Zofran Odt - SL 10/23/18 20:38 4 mg ONCE ONE Administration Medical Decision Making - Medical Decision Making 10/23/18 22:40 43 yo female presents to ED 1 days 4 episodes NB/NB vomiting and bilateral upper quadrant abdominal pain. Vitals WNL Pt does not currently have pain and states zofran relieved her vomiting CBC, CMP and UA WNL Transvaginal US demonstrates single IUP 14 weeks 3 days 156 BPM with no s/s of torsion. No torsion right side. No current concerns for appy. Pt safe for DC home with PCP and OB follow up. 7 days zofran and strict return precaution for possible appy Pt understands plan all questions answered *DC/Admit/Observation/Transfer Diagnosis at time of Disposition: Vomiting Qualifiers: Vomiting type: unspecified Vomiting Intractability: non-intractable Nausea presence: with nausea Qualified Code(s): R11.2 - Nausea with vomiting, unspecified - Discharge Dispostion Disposition: HOME - Prescriptions Prescriptions: Ondansetron [Zofran *Odt*] 8 mg SL BID 7 Days #14 od.tablet - Referrals Referrals: Siomara Erickson MD [Primary Care Provider] - - Patient Instructions Printed Discharge Instructions: DI for Hyperemesis Gravidarum, DI for Vomiting -- Adult Additional Instructions: Please see your Primary Doctor and MARKETING INFORMATION COORDINATOR within the next 48 hours. Take the medication Zofran sent to your pharmacy as needed for nausea over the next 1 week. Return to the ER for new or concerning symptoms including but not limited to: worsening abdominal pain, high fevers, inability to eat or drink, bloody vaginal discharge or profound generalized weakness. Thank you - Post Discharge Activity
--- NOTE | 2018-10-23 22:27 | PDOC ---
Attending Attestation - HPI HPI: 10/23/18 22:28 The patient is a 15 weeks 43 year old female , with a significant PMH of asthma, who presents to the emergency department with 1 day of nausea, vomiting (non bloody, non bilious) and intermittent bilateral upper quadrant abdominal pain. The patient states she saw her WASHING MACHINE INSTALLER Dr Chavez for evaluation earlier today and had a doppler US performed which showed normal heart rate and advised the patient to come to the ED for further evaluation of the nausea. The patient denies any recent vaginal bleeding or discharge. Denies any sick contacts or travel. The patient denies chest pain, shortness of breath, headache and dizziness. Denies fever, chills, diarrhea and constipation. Denies dysuria, frequency, urgency and hematuria. Allergies: NKA WASHING MACHINE INSTALLER: Dr Chavez Documentation prepared by Greg Haddad, acting as medical affairs specialist for Rafael Nunez MD. - Physicial Exam PE: 10/23/18 22:28 GENERAL: Awake, alert, and fully oriented, in no acute distress HEAD: No signs of trauma EYES: PERRLA, EOMI, sclera anicteric, conjunctiva clear ENT: Auricles normal inspection, hearing grossly normal, nares patent. Moist mucosa NECK: Normal ROM, supple, no JVD. ABDOMEN: Soft, nontender. (+) Gravid. No guarding, no rebound. No masses EXTREMITIES: Normal range of motion, no edema. No clubbing or cyanosis. No cords, erythema, or tenderness NEUROLOGICAL: Cranial nerves II through XII intact. Normal speech. SKIN: Warm, Dry, normal turgor, no rashes or lesions noted. <Greg Haddad - Last Filed: 10/23/18 22:28> - Resident Resident Name: Yrn Giron - ED Attending Attestation I have performed the following: I have examined & evaluated the patient, The case was reviewed & discussed with the resident, I agree w/resident's findings & plan, Exceptions are as noted - Medical Decision Making 10/23/18 22:19 A portion of this note was documented by scribe services under my direction. I have reviewed the details of the note, within reason, and agree with the documentation with the following case summary and management plan written by me. Patient treated in the ED. Nursing notes are reviewed and incorporated into the medical decision-making. Vital signs reviewed. Peripheral IV access obtained by the nurse, laboratory studies are drawn and sent, reviewed and interpreted by myself. Vital Signs Temp Pulse Resp BP Pulse Ox 98.6 F 94 H 18 124/62 100 10/23/18 20:35 10/23/18 20:35 10/23/18 20:35 10/23/18 20:35 10/23/18 20:35 43-year-old female patient with past medical history of asthma, approximate 15 weeks presents with abdominal discomfort for last week. Patient noted some episodes of nausea and vomiting today. However, denies any diarrhea vaginal bleeding or dysuria. Patient's concerned about her baby and came to the ER. I suspect patient likely having round ligament pain. I agree with the plan to obtain a ultrasound and urinalysis. Obtain labs. Patient may have some elements of gastritis and nausea secondary to . If the workup is negative the patient feels better, the patient be discharged home with oral Reglan. 10/23/18 22:41 Ultrasound demonstrates a single viable intrauterine gestation approximate for 2 weeks and 3 days. heart rate demonstrates 156 bpm. I do not have suspicion for appendicitis at this time. CBC, BMP 10/23/18 20:44 10/23/18 20:44 CMP Sodium 135 mmol/L (136-145) L 10/23/18 20:44 Potassium 3.5 mmol/L (3.5-5.1) 10/23/18 20:44 Chloride 105 mmol/L (98-107) 10/23/18 20:44 Carbon Dioxide 21 mmol/L (21-32) 10/23/18 20:44 Anion Gap 9 MMOL/L (8-16) 10/23/18 20:44 BUN 8 mg/dL (7-18) 10/23/18 20:44 Creatinine 0.5 mg/dL (0.55-1.3) L 10/23/18 20:44 Creat Clearance w eGFR > 60 (>60) 10/23/18 20:44 Random Glucose 131 mg/dL (74-106) H 10/23/18 20:44 Calcium 8.4 mg/dL (8.5-10.1) L 10/23/18 20:44 Total Bilirubin 0.8 mg/dL (0.2-1) 10/23/18 20:44 AST 18 U/L (15-37) 10/23/18 20:44 ALT 17 U/L (13-61) 10/23/18 20:44 Alkaline Phosphatase 51 U/L (45-117) 10/23/18 20:44 Total Protein 6.6 g/dl (6.4-8.2) 10/23/18 20:44 Albumin 3.0 g/dl (3.4-5.0) L 10/23/18 20:44 Urine Test Results Urine Color Yellow 10/23/18 22:25 Urine Appearance Slcloudy 10/23/18 22:25 Urine pH 7.0 (5.0-8.0) D 10/23/18 22:25 Ur Specific [place] 1.010 (1.010-1.035) 10/23/18 22:25 Urine Protein Negative (NEGATIVE) 10/23/18 22:25 Urine Glucose (UA) Negative (NEGATIVE) 10/23/18 22:25 Urine Ketones Negative (NEGATIVE) 10/23/18 22:25 Urine Blood Negative (NEGATIVE) 10/23/18 22:25 Urine Nitrite Negative (NEGATIVE) 10/23/18 22:25 Urine Bilirubin Negative (<2.0 mg/dL) 10/23/18 22:25 Ur Leukocyte Esterase Negative (NEGATIVE) 10/23/18 22:25 <Rafael Nunez - Last Filed: 10/23/18 22:42>
[2018-10-23 22:37] LABS: URINE APPEARANCE SLCLOUDY; URINE BILIRUBIN NEGATIVE (<2.0 mg/dL); URINE COLOR YELLOW; URINE GLUCOSE (UA) NEGATIVE (NEGATIVE); URINE KETONE NEGATIVE (NEGATIVE); URINE LEUK ESTERASE NEGATIVE (NEGATIVE); URINE NITRITE NEGATIVE (NEGATIVE); URINE PROTEIN NEGATIVE (NEGATIVE); URINE UROBILINOGEN NEGATIVE mg/dL (0.2-1.0)
== END 2018-10-23 22:53 | disposition home or self-care (01) ==
LOC: JER 20:16
DX: O26.892 Other specified pregnancy related conditions, second trimester (principal); O21.0 Mild hyperemesis gravidarum; Z3A.14 14 weeks gestation of pregnancy
CPT/HCPCS: 36415; 76815-TC; 80053; 81003; 85025; 99283-25; Q0162

== ENCOUNTER 2018-11-07 20:09 | Emergency (ER) | payer OTHER ==
[2018-11-07 20:23] VITALS: BP 111/69; PULSE 75; TEMP 98.2; BMI 27.7
--- NOTE | 2018-11-07 21:02 | PDOC ---
History of Present Illness - General History Source: Patient Exam Limitations: No Limitations - History of Present Illness Initial Comments: 11/07/18 21:14 The patient is a 17 weeks 43 year old female , with a significant PMH of asthma, who presents to the emergency department with 1 day of intermittent lower abdominal pain. The patient states at worse the abdominal pain is rated 6/10 in intensity. However, at presentation the lower abdominal pain is rated 4/10. The patient denies any exacerbating or remitting factors. The patient states her last bowel movement was 2-3 hours ago which she reports was normal. Denies any recent vaginal bleeding or discharge. The patient also endorses nausea secondary to her which she states is unchanged. The patient denies chest pain, shortness of breath, headache and dizziness. Denies fever, chills, vomit, diarrhea and constipation. Denies dysuria, frequency, urgency and hematuria. Allergies: NKA <Greg Haddad - Last Filed: 11/07/18 22:50> <Mary Alice Wilde - Last Filed: 11/08/18 00:23> - General Chief Complaint: Pain, Acute Stated Complaint: 17 WEEKS IN PAIN Time Seen by Provider: 11/07/18 21:02 Past History <Greg Haddad - Last Filed: 11/07/18 22:50> - Past Medical History Anemia: No Asthma: Yes Cancer: No Cardiac Disorders: No CVA: No COPD: No CHF: No Dementia: No Diabetes: No GI Disorders: No Disorders: No HTN: No Hypercholesterolemia: No Liver Disease: No Seizures: No Thyroid Disease: No - Surgical History Abdominal Surgery: Yes (ABDOMINOPLASTY) Appendectomy: No Cardiac Surgery: No Cholecystectomy: No Lung Surgery: No Neurologic Surgery: No Orthopedic Surgery: No - Family Disease History Family Disease History: Diabetes: Mother - Reproductive History (#): 7 Para: 3 Cervical CA: No Dysfunctional Uterine Bleeding: No Ectopic : No Endometrial CA: No Polycystic Ovaries: No Therapeutic (s) & number: No Tubal Ligation: No Spontaneous : 3 - Immunization History Immunization Up to Date: Yes - Suicide/Smoking/Psychosocial Hx Smoking History: Unknown if ever smoked Have you smoked in the past 12 months: No Hx Alcohol Use: No Drug/Substance Use Hx: No Substance Use Type: None Hx Substance Use Treatment: No <Mary Alice Wilde - Last Filed: 11/08/18 00:23> - Past Medical History Allergies/Adverse Reactions: Allergies Allergy/AdvReac Type Severity Reaction Status Date / Time No Known Allergies Allergy Verified 11/07/18 23:05 Home Medications: Ambulatory Orders No122/Iron/Folic Acid [ Multi Tablet] 1 each PO DAILY 09/23/18 Ondansetron [Zofran *Odt*] 8 mg SL BID 7 Days #14 od.tablet 10/23/18 Review of Systems - Review of Systems Comments:: 11/07/18 21:18 GENERAL/CONSTITUTIONAL: No fever or chills. No weakness. HEAD, EYES, EARS, NOSE AND THROAT: No change in vision. No ear pain or discharge. No sore throat. CARDIOVASCULAR: No chest pain or shortness of breath. RESPIRATORY: No cough, wheezing, or hemoptysis. GASTROINTESTINAL: (+) Lower abdominal pain. (+) Nausea. No vomiting, diarrhea or constipation. GENITOURINARY: No dysuria, frequency, or change in urination. MUSCULOSKELETAL: No joint or muscle swelling or pain. No neck or back pain. SKIN: No rash NEUROLOGIC: No headache, vertigo, loss of consciousness, or change in strength/ sensation. ENDOCRINE: No increased thirst. No abnormal weight change. HEMATOLOGIC/LYMPHATIC: No anemia, easy bleeding, or history of blood clots. ALLERGIC/IMMUNOLOGIC: No hives or skin allergy. <Greg Haddad - Last Filed: 11/07/18 22:50> *Physical Exam - Vital Signs Last Vital Signs Temp Pulse Resp BP Pulse Ox 98.2 F 75 20 111/69 98 11/07/18 20:20 11/07/18 20:20 11/07/18 20:20 11/07/18 20:20 11/07/18 20:20 - Physical Exam Comments: 11/07/18 22:50 GENERAL: Awake, alert, and fully oriented, in no acute distress HEAD: No signs of trauma EYES: PERRLA, EOMI, sclera anicteric, conjunctiva clear ENT: Auricles normal inspection, hearing grossly normal, nares patent, oropharynx clear without exudates. Moist mucosa NECK: Normal ROM, supple, no lymphadenopathy, JVD, or masses LUNGS: Breath sounds equal, clear to auscultation bilaterally. No wheezes, and no crackles HEART: Regular rate and rhythm, normal S1 and S2, no murmurs, rubs or gallops ABDOMEN: Soft. (+) Minimal tenderness left lower quadrant. No rebound or guarding. (+) Gassy, states she is constipated. EXTREMITIES: Normal range of motion, no edema. No clubbing or cyanosis. No cords, erythema, or tenderness NEUROLOGICAL: Cranial nerves II through XII grossly intact. Normal speech, normal gait SKIN: Warm, Dry, normal turgor, no rashes or lesions noted. <Greg Haddad - Last Filed: 11/07/18 22:50> - Vital Signs Last Vital Signs Temp Pulse Resp BP Pulse Ox 98.2 F 75 20 111/69 98 11/07/18 20:20 11/07/18 20:20 11/07/18 20:20 11/07/18 20:20 11/07/18 20:20 <Mary Alice Wilde - Last Filed: 11/08/18 00:23> Moderate Sedation - Procedure Monitoring Vital Signs: Procedure Monitoring Vital Signs Temperature 98.2 F 11/07/18 20:20 Pulse Rate 75 11/07/18 20:20 Respiratory Rate 20 11/07/18 20:20 Blood Pressure 111/69 11/07/18 20:20 O2 Sat by Pulse Oximetry (%) 98 11/07/18 20:20 <Greg Haddad - Last Filed: 11/07/18 22:50> - Procedure Monitoring Vital Signs: Procedure Monitoring Vital Signs Temperature 98.2 F 11/07/18 20:20 Pulse Rate 75 11/07/18 20:20 Respiratory Rate 20 11/07/18 20:20 Blood Pressure 111/69 11/07/18 20:20 O2 Sat by Pulse Oximetry (%) 98 11/07/18 20:20 <Mary Alice Wilde - Last Filed: 11/08/18 00:23> ED Treatment Course - LABORATORY CBC & Chemistry Diagram: 11/07/18 21:08 <Greg Haddad - Last Filed: 11/07/18 22:50> - LABORATORY CBC & Chemistry Diagram: 11/07/18 21:08 <Mary Alice Wilde - Last Filed: 11/08/18 00:23> Medical Decision Making - Medical Decision Making 03/16/19 21:43 CBC and UA are normal. 11/08/18 00:23 Patient Name: CURT HERNANDEZ THIS IS A PRELIMINARY REPORT FROM [facility] DATE OF SERVICE: 2018-11-07 21:57:28 IMAGES: 34 EXAM: OB ultrasound HISTORY: Abdominal pain COMPARISON: None. FINDINGS: There is a single live intrauterine with estimated gestational age of 17 weeks and 1 day. heart rate is 152 bpm. position at this time is cephalic. There is a anterior placenta. There is no placenta previa. Amniotic fluid volume is within normal limits. The cervix measures 3.45 cm and is grossly closed. IMPRESSION: Live intrauterine with estimated gestational age of 17 weeks and 1 day <Mary Alice Wilde - Last Filed: 11/08/18 00:23> *DC/Admit/Observation/Transfer - Attestations Scribe Attestion: 11/07/18 21:19 Documentation prepared by Greg Haddad, acting as medical nurse for Mary Alice Wilde MD. <Greg Haddad - Last Filed: 11/07/18 22:50> - Discharge Dispostion Decision to Admit order: No <Mary Alice Wilde - Last Filed: 11/08/18 00:23> Diagnosis at time of Disposition: Constipation, Gas pain - Discharge Dispostion Disposition: HOME Condition at time of disposition: Stable - Referrals Referrals: Siomara Erickson MD [Primary Care Provider] - - Patient Instructions Printed Discharge Instructions: DI for Constipation - Post Discharge Activity
[2018-11-07 21:17] LABS: BASO % 0.3 % (0-2.0); EOS % 1.3 % (0-4.5); HEMATOCRIT 34.8 % (32.4-45.2); HEMOGLOBIN 12.2 GM/dL (10.7-15.3); LYMPH % 27.2 % (8-40); MCH 33.1 pg (25.7-33.7); MEAN CELL VOLUME 94.4 fl (80-96); MEAN PLT VOLUME 8.1 fl (7.5-11.1); NEUT % 63.2 % (42.8-82.8); PLATELET COUNT 195 K/MM3 (134-434); RBC 3.68 M/mm3 (3.60-5.2); RDW 13.3 % (11.6-15.6); WHITE BLOOD COUNT 9.4 K/mm3 (4.0-10.0)
[2018-11-07 21:34] LABS: URINE APPEARANCE SLCLOUDY; URINE BILIRUBIN NEGATIVE (<2.0 mg/dL); URINE COLOR YELLOW; URINE GLUCOSE (UA) NEGATIVE (NEGATIVE); URINE KETONE NEGATIVE (NEGATIVE); URINE LEUK ESTERASE NEGATIVE (NEGATIVE); URINE NITRITE NEGATIVE (NEGATIVE); URINE PROTEIN NEGATIVE (NEGATIVE); URINE UROBILINOGEN NEGATIVE mg/dL (0.2-1.0)
== END 2018-11-07 23:13 | disposition home or self-care (01) ==
LOC: JER 20:09
DX: O26.892 Other specified pregnancy related conditions, second trimester (principal); K59.09 Other constipation; R14.1 Gas pain; Z3A.17 17 weeks gestation of pregnancy
CPT/HCPCS: 36415; 76815; 81003; 85025; 99282-25

== ENCOUNTER 2019-04-15 23:15 | Inpatient (IN) | payer OTHER ==
[2019-04-15] MEDS ORDERED: DEXTROSE 5%-LACTATED RINGERS 1,000 ML IV SCH (23:45)
[2019-04-16] MEDS ORDERED: AMPICILLIN SODIUM 2 GM VIAL ONE (00:03)
[2019-04-16] MEDS ORDERED: AMPICILLIN - 2 GM in SODIUM CHLORIDE 100 ML IVPB ONE (00:30)
[2019-04-16 01:05] VITALS: BMI 30.4
[2019-04-16 01:18] LABS: BASO % 0.4 % (0-2.0); EOS % 0.7 % (0-4.5); HEMATOCRIT 36.5 % (32.4-45.2); LYMPH % 19.1 % (8-40); MCHC 32.9 g/dl (32.0-36.0); MEAN CELL VOLUME 94.3 fl (80-96); MEAN PLT VOLUME 8.7 fl (7.5-11.1); NEUT % 72.8 % (42.8-82.8); PLATELET COUNT 210 K/MM3 (134-434); RBC 3.87 M/mm3 (3.60-5.2); RDW 14.3 % (11.6-15.6); WHITE BLOOD COUNT 11.7 K/mm3 (4.0-10.0)
[2019-04-16 01:31] LABS: BLOOD UREA NITROGEN 17.2 mg/dL (7-18); CALCIUM 9.1 mg/dL (8.5-10.1); CREATININE 0.5 mg/dL (0.55-1.3)
[2019-04-16 01:59] LABS: INR 0.88 (0.83-1.09); PROTHROMBIN TIME (PATIENT) 10.4 SEC (9.7-13.0)
[2019-04-16 02:02] LABS: ACTIVATED PTT 26.2 SECONDS (25.2-36.5)
[2019-04-16] MEDS ORDERED: AMPICILLIN SODIUM 1 GM VIAL ONE ×2 (04:19→08:18)
[2019-04-16] MEDS: AMPICILLIN - 1 GM in SODIUM CHLORIDE 100 ML IVPB SCH ×3 (04:30→13:04)
[2019-04-16] MEDS ORDERED: OXYTOCIN 30 UNITS in 0.9% NS 30 UNIT/500 ML INFUS.BAG IVPB ONE (06:19)
[2019-04-16] MEDS ORDERED: OXYTOCIN 30 UNITS in 0.9% NS 30 UNIT/500 ML INFUS.BAG IVPB SCH (06:45)
[2019-04-16] MEDS ORDERED: ELECTROLYTE-148 SOLN 1,000 ML IV SCH (07:15)
--- NOTE | 2019-04-16 07:20 | HP ---
Past Medical History - Primary Care Physician PCP:: Krunal Duong - Admission Chief Complaint: 39 weeks, rom, labor History of Present Illness: 43 yo f grand multiparous with AMA, 39 weeks , 0 4 4 c/o ROM , clear , since pm 04/15/19. has mild contraction , no bleeding, no fever, cx 4 cm 70 vx -3 mr, clear , fhr cat 1 History Source: Patient Limitations to Obtaining History: No Limitations, Language Barrier - Past Medical History Cardiovascular: Yes: Pulmonary Hypertension Pulmonary: Yes: Asthma ...: 9 ...Para: 3 ...Term: 3 ...: 0 ...Spon : 4 ...Induced : 1 ...Multiple Gestation: 0 ...LMP: 07/16/18 ... Weeks Gestation by Dates: 39.0 ...EDC by Dates: 04/22/19 ...EDC by Sono: 04/18/19 Infectious Disease: Yes: Other (denies ) Psych: Yes: Other (denies) Musculoskeletal: Yes: Other (denies) Rheumatology: Yes: Other (denies) Endocrine: Yes: Other (d4nies) - Past Surgical History Hx Myomectomy: No Hx Transabdominal Cerclage: No - Smoking History Smoking history: Never smoked Have you smoked in the past 12 months: No - Alcohol/Substance Use Hx Alcohol Use: No History of Substance Use: reports: None - Social History History of Recent Travel: No Home Medications - Allergies Allergies/Adverse Reactions: Allergies Allergy/AdvReac Type Severity Reaction Status Date / Time No Known Allergies Allergy Verified 04/16/19 01:11 - Home Medications Home Medications: Ambulatory Orders No122/Iron/Folic Acid [ Multi Tablet] 1 each PO DAILY 09/23/18 SYMBICORT 160/4.5mcg - 2 puff PO BID 04/16/19 Valacyclovir HCl [Valtrex] 1 tab PO DAILY 04/16/19 Review of Systems - Review of Systems Constitutional: reports: No Symptoms Eyes: reports: No Symptoms HENT: reports: No Symptoms Neck: reports: No Symptoms Cardiovascular: reports: No Symptoms Respiratory: reports: No Symptoms Gastrointestinal: reports: No Symptoms Genitourinary: reports: No Symptoms Breasts: reports: No Symptoms Reported Musculoskeletal: reports: No Symptoms Integumentary: reports: No Symptoms Neurological: reports: No Symptoms Endocrine: reports: No Symptoms Hematology/Lymphatic: reports: No Symptoms Psychiatric: reports: No Symptoms Physical Exam - Maternity Vital Signs: Vital Signs Temperature 98.5 F 04/16/19 06:00 Pulse Rate 95 H 04/16/19 06:00 Respiratory Rate 20 04/16/19 06:00 Blood Pressure 116/80 04/16/19 06:00 O2 Sat by Pulse Oximetry (%) Constitutional: Yes: Well Nourished, No Distress, Calm Eyes: Yes: WNL, Conjunctiva Clear, EOM Intact HENT: Yes: WNL, Atraumatic, Normocephalic Neck: Yes: WNL, Supple, Trachea Midline Cardiovascular: Yes: WNL, Regular Rate and Rhythm Breast(s): Yes: WNL - Abdominal Exam/OB Fundal Height: 38 Number of Fetuses: Single Presentation: Vertex Contractions: Yes Regularity: Irregular Intensity: Moderate Monitor Mode: External Heart Rate Location: [facility] Category: I Accelerations: Non-Uniform Decelerations: None - Vaginal Exam/OB Vaginal Bleediing: No Speculum Exam: No Dilatation (cm): 4 cm Effacement (%): 70 Amniotic Membrane Status: Ruptured Nitrazine Test: Positive Amniotic Fluid: Yes: Clear Presentation: Vertex/Position Station: -3 - Physical Exam Musculoskeletal: Yes: WNL Extremities: Yes: WNL Edema: Yes Edema: LLE: Trace, RLE: Trace Integumentary: Yes: WNL Deep Tendon Reflex Grade: Normal +2 ...Motor Strength: WNL Psychiatric: Yes: WNL - Labs Lab Results: CBC, BMP 04/16/19 00:18 04/16/19 00:18 Hemorrhage Risk Assessment - Risk Factors Medium Risk Factors: Yes: Prior , uterine surgery,or multiple laparotomies Risk Score: 1 Risk Level: Medium Risk Problem List - Problems (1) with 39 completed weeks gestation Code(s): Z3A.39 - 39 WEEKS GESTATION OF (2) Advanced maternal age (AMA) in Code(s): BKK9225 - (3) Multiparity, grand, in labor and delivery Code(s): O09.40 - SUPERVISION OF W GRAND MULTIPARITY, UNSP TRIMESTER Qualifiers: Trimester: third trimester Qualified Code(s): O09.43 - Supervision of with grand multiparity, third trimester (4) Asthma Code(s): J45.909 - UNSPECIFIED ASTHMA, UNCOMPLICATED Qualifiers: Asthma severity: moderate Asthma complication type: uncomplicated Assessment/Plan admit, GBS positve, will start AMP. FHM pitocin stimulation if contraction not regular pain management
[2019-04-16] MEDS ORDERED: FENTANYL/BUPIVACAINE/NS/PF - PCEA - 50 ML DISP.SYRIN EP ONE (07:26)
[2019-04-16] MEDS ORDERED: LIDO 2%/EPI 1:200000 PRESRVFRE (20 ML SDVIAL) ONE (07:29)
[2019-04-16] MEDS ORDERED: BUPIVACAINE HCL/PF 2.5 MG/ML - 30 ML VIAL IJ ONE (07:30)
[2019-04-16] MEDS ORDERED: NALOXONE HCL 0.4 MG/ML VIAL IVPUSH PRN (07:32)
[2019-04-16] MEDS ORDERED: FENTANYL/BUPIVACAINE/NS/PF - PCEA - 50 ML DISP.SYRIN EP SCH (07:45)
[2019-04-16] MEDS ORDERED: LIDOCAINE HCL 1% PRESERVATIVE FREE - 30ML VIAL ONE (08:30)
[2019-04-16] MEDS ORDERED: OXYTOCIN 20 UNITS in 0.9% NS 20 UNIT/1,000 ML INFUS.BAG IV ONE (08:30)
[2019-04-16] MEDS: OXYTOCIN 20 UNITS in 0.9% NS 20 UNIT/1,000 ML INFUS.BAG IV SCH ×2 (09:00→14:25)
[2019-04-16] MEDS ORDERED: IBUPROFEN 600 MG TABLET (FP) PO ONE (09:24)
[2019-04-16] MEDS ORDERED: ACETAMINOPHEN 325 MG TABLET (FP) ONE (09:24)
[2019-04-16] MEDS: ACETAMINOPHEN 325 MG TABLET (FP) PO PRN ×2 (09:30→15:20)
[2019-04-16] MEDS: IBUPROFEN 600 MG TABLET (FP) PO PRN ×2 (09:30→15:20)
[2019-04-16] MEDS ORDERED: BISACODYL 10 MG SUPP.RECT RC PRN (10:51)
[2019-04-16] MEDS ORDERED: BENZOCAINE 28 GM HEMORRHOIDAL OINTMENT TP PRN (10:51)
[2019-04-16] MEDS ORDERED: BENZOCAINE 20% 57 GM BOTTLE TP PRN (10:51)
[2019-04-16] MEDS ORDERED: METHYLERGONOVINE MALEATE 0.2 MG/1 ML AMP IM PRN (10:51)
[2019-04-16] MEDS ORDERED: WITCH HAZEL 50% (TUCKS) 40 PAD/JAR PAD TP PRN (10:51)
[2019-04-16] MEDS ORDERED: D5W-LR W/ 20 UNITS OXYTOCIN 20 UNIT/1,000 ML INFUS.BAG IV SCH (11:00)
[2019-04-16] MEDS: FERROUS SO4 325 MG TABLET (FP) PO SCH (22:08)
[2019-04-17] MEDS: IBUPROFEN 600 MG TABLET (FP) PO PRN ×3 (00:14→21:54)
[2019-04-17] MEDS: ACETAMINOPHEN 325 MG TABLET (FP) PO PRN ×3 (00:14→21:53)
--- NOTE | 2019-04-17 08:25 | PN ---
Post Progress Note - Subjective Subjective: Ambulating, tolerating PO, lochia decreased, passing flatus Type of Delivery: Vital Signs: Vital Signs Temperature 98.7 F 04/17/19 06:00 Pulse Rate 83 04/17/19 06:00 Respiratory Rate 18 04/17/19 06:00 Blood Pressure 129/86 04/17/19 06:00 O2 Sat by Pulse Oximetry (%) 100 04/16/19 10:15 Breast Exam: Yes: Other (deferred) Uterus: Yes: Fundus Firm Abdomen/GI: Yes: Abdomen soft Lochia, amount: Moderate Extremities: Yes: Calves non-tender Activity: Ambulating - Labs Labs: CBC WBC 11.7 K/mm3 (4.0-10.0) H 04/16/19 00:18 RBC 3.87 M/mm3 (3.60-5.2) 04/16/19 00:18 Hgb 12.0 GM/dL (10.7-15.3) 04/16/19 00:18 Hct 36.5 % (32.4-45.2) 04/16/19 00:18 MCV 94.3 fl (80-96) 04/16/19 00:18 MCH 31.0 pg (25.7-33.7) 04/16/19 00:18 MCHC 32.9 g/dl (32.0-36.0) 04/16/19 00:18 RDW 14.3 % (11.6-15.6) 04/16/19 00:18 Plt Count 210 K/MM3 (134-434) 04/16/19 00:18 MPV 8.7 fl (7.5-11.1) 04/16/19 00:18 Absolute Neuts (auto) 8.5 K/mm3 (1.5-8.0) H 04/16/19 00:18 Neutrophils % 72.8 % (42.8-82.8) 04/16/19 00:18 Lymphocytes % 19.1 % (8-40) D 04/16/19 00:18 Monocytes % 7.0 % (3.8-10.2) 04/16/19 00:18 Eosinophils % 0.7 % (0-4.5) 04/16/19 00:18 Basophils % 0.4 % (0-2.0) 04/16/19 00:18 Nucleated RBC % 0 % (0-0) 04/16/19 00:18 Assessment/Plan PPD # 1 in stable condition, female doing well. -continue PP care -Anticipate D/C home tomorrow
[2019-04-17 08:28] LABS: BASO % 0.4 % (0-2.0); EOS % 0.8 % (0-4.5); HEMATOCRIT 29.7 % (32.4-45.2); MCH 31.6 pg (25.7-33.7); MCHC 33.6 g/dl (32.0-36.0); MONO % 5.7 % (3.8-10.2); NEUT % 74.1 % (42.8-82.8); PLATELET COUNT 173 K/MM3 (134-434); RBC 3.16 M/mm3 (3.60-5.2); RDW 14.3 % (11.6-15.6); WHITE BLOOD COUNT 12.3 K/mm3 (4.0-10.0)
[2019-04-17] MEDS: PRENATAL VITAMINS W/ FOLIC ACID TABLET (FP) PO SCH (09:24)
[2019-04-17] MEDS: FERROUS SO4 325 MG TABLET (FP) PO SCH ×2 (09:24→21:53)
[2019-04-17] MEDS ORDERED: SENNOSIDES/DOCUSATE COMBO (SENNA PLUS) TABLET (UD) PO PRN (22:00)
--- NOTE | 2019-04-18 09:48 | DS ---
Physical Examination Vital Signs: Vital Signs Temperature 98.0 F 04/17/19 21:00 Pulse Rate 85 04/17/19 21:00 Respiratory Rate 20 04/17/19 21:00 Blood Pressure 111/70 04/17/19 21:00 O2 Sat by Pulse Oximetry (%) 100 04/16/19 10:15 Constitutional: Yes: Well Nourished HENT: Yes: Atraumatic, Normocephalic Neck: Yes: Supple Cardiovascular: Yes: Regular Rate and Rhythm Respiratory: Yes: Regular Gastrointestinal: Yes: Normal Bowel Sounds ...Rectal Exam: Yes: Other Breast(s): Yes: Other (deferred) Extremities: Yes: WNL Edema: LLE: Trace, RLE: Trace Integumentary: Yes: WNL Neurological: Yes: Alert, Oriented ...Motor Strength: WNL Psychiatric: Yes: Alert, Oriented Labs: CBC, BMP 04/17/19 07:20 04/16/19 00:18 Discharge Summary Reason For Visit: LABOR Current Active Problems Advanced maternal age (AMA) in (Acute) Asthma (Acute) Multiparity, grand, in labor and delivery (Acute) with 39 completed weeks gestation (Acute) Procedures: Principal: Hospital Course: Uncomplicated - Instructions Diet, Activity, Other Instructions: Please reassume regular diet, nothing per vagina until cleared by provider. Call MD with any questions or problems. Follow up for visit in 5- 8wks. Referrals: Bismark Pringle MD [Staff Physician] - Disposition: HOME - Home Medications Comprehensive Discharge Medication List: Ambulatory Orders No122/Iron/Folic Acid [ Multi Tablet] 1 each PO DAILY 09/23/18 SYMBICORT 160/4.5mcg - 2 puff PO BID 04/16/19 Valacyclovir HCl [Valtrex] 1 tab PO DAILY 04/16/19 Acetaminophen [Tylenol] 325 mg PO Q4H PRN #14 capsule MDD 6 04/17/19 Ibuprofen 600 mg PO Q6H PRN #14 tablet MDD 4 04/17/19
[2019-04-18] MEDS: FERROUS SO4 325 MG TABLET (FP) PO SCH (10:13)
[2019-04-18] MEDS: PRENATAL VITAMINS W/ FOLIC ACID TABLET (FP) PO SCH (10:13)
[2019-04-18 13:01] VITALS: BP 124/67; PULSE 78; TEMP 98.3
[2019-04-19 11:48] LABS: POC NITRAZINE POS
== END 2019-04-18 13:10 | disposition home or self-care (01) | DRG 560 ==
LOC: JDEL 23:15 → JLDR 23:45 → J3W 04-16 11:20
PROVIDERS: ADMIT Obstetrics & Gynecology; ATTEND Obstetrics & Gynecology
PROC: 10E0XZZ Delivery of Products of Conception, External Approach (ICD-10-PCS; principal; 2019-04-16)
PROC: 0W8NXZZ Division of Female Perineum, External Approach (ICD-10-PCS; 2019-04-16)
DX: O99.824 Streptococcus B carrier state complicating childbirth (principal); O75.89 Other specified complications of labor and delivery; J45.909 Unspecified asthma, uncomplicated; Z3A.39 39 weeks gestation of pregnancy; Z37.0 Single live birth
CPT/HCPCS: 36415; 36600; 59409; 80048; 82803; 83986-QW; 85025; 85610; 85730; 86593; 86850; 86900; 86901; 87389

== ENCOUNTER 2019-08-20 05:03 | Day surgery (SDC) | payer OTHER ==
[2019-08-16 11:42] VITALS: BMI 24.5
[2019-08-20] MEDS ORDERED: BUPIVACAINE HCL/PF 0.5% (5 MG/ML) 30 ML VIAL IJ ONE ×3 (07:13→09:42)
[2019-08-20] MEDS ORDERED: DEXAMETHASONE SOD PHOSPHATE 4 MG/1 ML VIAL ONE (08:09)
[2019-08-20] MEDS ORDERED: LIDOCAINE HCL/PF 2% SDV 5ML VIAL ONE (08:09)
[2019-08-20] MEDS ORDERED: KETOROLAC TROMETHAMINE 30 MG/1 ML VIAL ONE (08:09)
--- NOTE | 2019-08-20 09:21 | HP ---
History & Physical Update - Physical Physical: No Change - Assessment Assessment: No Change - Plan Plan: No Change
[2019-08-20] MEDS ORDERED: PROPOFOL 20 ML ONE (10:01)
[2019-08-20] MEDS ORDERED: ROCURONIUM BROMIDE 50 MG/5 ML SYRINGE ONE (10:01)
[2019-08-20] MEDS ORDERED: fentaNYL CITRATE 250 MCG/5 ML VIAL ONE (10:01)
[2019-08-20] MEDS ORDERED: MIDAZOLAM HCL 2 MG/2 ML SINGLE DOSE VIAL ONE (10:01)
[2019-08-20] MEDS ORDERED: LACTATED RINGERS SOLUTION 1,000 ML IV SCH (11:00)
[2019-08-20] MEDS ORDERED: ONDANSETRON 4 MG/2 ML VIAL IVPUSH PRN (11:00)
[2019-08-20 12:26] VITALS: TEMP 97.4
[2019-08-20] MEDS ORDERED: ONDANSETRON 4 MG/2 ML VIAL ONE (12:52)
--- NOTE | 2019-08-20 13:15 | SURG ---
Surgery Button Pusher Note Button Pusher: Sam Marcelo PA-C (Suzy) Date of Service: 08/20/19 Diagnosis: Multiparity Procedure: Laparoscopic Right salpingectomy, partial left salpingectomy I was present for the entirety of the operative procedure. For further detail, please refer to operative report. Visit type - Case Type Case Type: Scheduled - Emergency Emergency Visit: No - New patient This patient is new to me today: Yes Date on this admission: 08/20/19 - Critical Care Critical Care patient: No
[2019-08-20 15:15] VITALS: BP 114/60; PULSE 56
--- NOTE | 2019-08-20 15:34 | OP ---
Operative Note - Note: Operative Date: 08/20/19 (dict # [id number]) Pre-Operative Diagnosis: Multiparity, abdominoplasty, laparotomy and cystectomy Operation: Laaroscopic right salpingectomy, left partial salpingectomy, lysis of adhesions Findings: see dictation Implants: none Post-Operative Diagnosis: Same as Pre-op Surgeon: Bismark Pringle Anesthesia: General Specimens Removed: right fallopian tube and left salpingectomy Estimated Blood Loss (mls): 5 Operative Report Dictated: Yes
--- NOTE | 2019-08-21 08:06 | OP ---
DATE OF OPERATION: 08/20/2019 ATTENDING SURGEON: Kyle Ford MD PREOPERATIVE DIAGNOSIS: A 44-year-old multiparous female, with history of abdominoplasty, and laparostomy with cystectomy. SURGERY: Laparoscopic right salpingectomy, left partial salpingectomy, lysis of adhesions. POSTOPERATIVE DIAGNOSIS: A 44-year-old multiparous female, with history of abdominoplasty, and laparostomy with cystectomy. [employer]UM[employer] SUPERVISOR: KAT Vargas ANESTHESIA: General. ESTIMATED BLOOD LOSS: Minimal. INTRAVENOUS FLUIDS: Per Anesthesia. URINE: Clear as documented. SPECIMENS: Right fallopian tube and partial left fallopian tube, infraumbilical subcutaneous foreign bodies. FINDINGS: Anterior abdomen skin consistent with prior mentioned surgeries. Intraabdominal findings reveal omental adhesions to the distal part of the right fallopian tube. The left fallopian tube was adherent to the parametria and the pelvic wall. Uterus was consistent with normal anatomy. Prolene suture encountered in subcutaneous tissue infraumbilically. PROCEDURE: Patient was taken to the operating room where anesthesia was found to be adequate. She was then prepped and draped in the normal sterile fashion. Then a Pizarro catheter was placed atraumatically. Appropriate timeout took place. Metal retractors were utilized to visualize the cervix which anterior aspect was grasped with a Edgar tenaculum. The cervix was progressively dilated with Hegar dilators. HUMI manipulator was advanced to a depth of 8 cm and balloon tip inflated. All instruments were retrieved from the vagina. Attention was then redirected to anterior abdominal wall where an infraumbilical incision following skin scar was made with the scalpel and carried to underlying fascia bluntly. The fascia was elevated with Marci clamps and transected. At this point in time, the Prolene sutures were noted. One was removed and sent to pathology, labeled as foreign object. Incidental entry to the peritoneal cavity occurred. Prakash trochar paced and insufflating media activated. No observed adhesions at the point of entry or active bleeding noted with laparoscope. The viscera immediately adjacent to the point of entry revealed no evidence of trauma. A 360 inspection revealed the previously mentioned findings. A right lower quadrant 5-mm trocar was placed followed by a left lower quadrant one under constant visualization without difficulty. Attention was redirected to the right fallopian tube, which was followed to its fimbriated end. The tube was elevated and thick adhesions of omentum were noted on its distal end. Lysis of adhesions took place with the LigaSure instrument as the omentum was cauterized and transected adjacent to the fallopian tube. This was done as the tube was elevated and no adjacent viscera noted. Following this, no active bleeding was noted from the omental surgical stump. The right fallopian tube was excised by using the LigaSure instrument by cauterizing the mesosalpinx immediately adjacent to the tube. Entire tube was excised, placed in the anterior cul-de-sac. Excellent hemostasis was noted on that side. Attention then was redirected to the left fallopian tube, where the distal end was noted to be congested and adherent to the parametrium on the pelvic wall on that side. The tube was followed to its proximal end adjacent to the uterus and was elevated and partial proximal salpingectomy took place as the tube was elevated from any surrounding viscera. No active bleeding was noted. The segment of the tube was placed in the anterior cul-de-sac. No active bleeding from the surgical field. The segment of the left tube was removed through the infraumbilical port and sent to pathology. The right fallopian tube was removed individually through the infraumbilical port and sent to pathology. Inspection of the surgical field revealed again excellent hemostasis and no additional anomaly. Right lower quadrant and left lower quadrant ports were removed under constant visualization. The laparoscope was removed. The infraumbilical ports were removed and all the insufflating medium was evacuated from the abdomen. The fascial incision was reapproximated with 2 interrupted 0 Polysorb sutures. The fascial defect was obliterated, and the skin incision was reapproximated with 4-0 Biosyn subcuticular sutures. Attention was then redirected to the vaginal area where the Pizarro catheter and the HUMI manipulator were removed. No active bleeding was noted from the vagina. The patient is going to recovery room in stable condition. Instrument count was reported as correct x2 by the staff. KYLE FORD MD [id number] MTDAmol
--- NOTE | 2019-08-23 16:59 | PATH ---
Surgical Pathology Report Patient Name: CURT HERNANDEZ [facility]. Rec. #: [id number] /Age/Gender: 1975 (Age: 44) / F Account: [id number] Location: [facility] SURGICAL Taken: 08/20/2019 Received: 08/20/2019 Reported: 08/23/2019 Physicians: Bismakr Pringle MD Specimen(s) Received A: SEGMENT OF LEFT TUBE (FALLOPIAN) B: FOREIGN BODY FROM INFRAUMBILICAL C: RIGHT TUBE (FALLOPIAN) Clinical History Multiparity Final Diagnosis A. SEGMENT OF LEFT FALLOPIAN TUBE, RESECTION: COMPLETE CROSS SECTION OF THE FALLOPIAN TUBE LUMEN IDENTIFIED. B. FOREIGN BODY FROM INFRAUMBILICAL, REMOVAL: FOREIGN BODY MATERIAL. GROSS EXAMINATION ONLY. C. RIGHT FALLOPIAN TUBE, SALPINGECTOMY: PORTION OF FALLOPIAN TUBE WITH NO SIGNIFICANT PATHOLOGIC CHANGE. COMPLETE CROSS SECTION OF FALLOPIAN TUBE LUMEN IDENTIFIED. Electronically Signed Wendy Yee M.D. Gross Description A. Received in formalin labeled "segment left tube," is a 1.5 cm in length possible portion of fallopian tube. No fimbria are present. The outer surface is salinas-pink and smooth. Sectioning reveals an unremarkable lumen. The specimen is serially sectioned and entirely submitted in one cassette. B. Received in formalin labeled "infraumbilical foreign body," are 2 portions of blue suture material measuring 0.3 and 2.4 cm in length. No soft tissue is present. No sections are submitted, gross only. C. Received in formalin labeled "right tube fallopian," is a 7 cm in length fimbriated fallopian tube. The outer surface is alcaraz purple and smooth. Sectioning reveals unremarkable lumen. Supervisor [employer] sections are submitted in 2 cassettes as follows: 1-fimbria; 2-cross sections of fallopian tube. DL/08/20/2019 saudi08/20/2019
== END 2019-08-20 14:00 | disposition home or self-care (01) ==
LOC: JASU-SURG 05:03
PROVIDERS: ATTEND Student in an Organized Health Care Education/Training Program
PROC: 0UT74ZZ Resection of Bilateral Fallopian Tubes, Percutaneous Endoscopic Approach (ICD-10-PCS; principal; 2019-08-20 09:00)
DX: Z64.1 Problems related to multiparity (principal)
CPT/HCPCS: 84703; 88300-TC; 88302-TC; 94760

== ENCOUNTER 2020-10-24 04:08 | Day surgery (SDC) | payer OTHER ==
[2020-10-20 17:34] VITALS: BMI 24.7
[2020-10-24] MEDS ORDERED: PROPOFOL 20 ML ONE ×2 (13:30→13:59)
[2020-10-24] MEDS ORDERED: SUCCINYLCHOLINE CHLORIDE 200 MG/10 ML SYRINGE ONE (13:36)
[2020-10-24] MEDS ORDERED: DOXYCYCLINE INJECTION 100 MG in DEXTROSE 5%-WATER - 100 ML IVPB ONE ×2 (14:28→15:00)
[2020-10-24] MEDS ORDERED: ONDANSETRON 4 MG/2 ML VIAL IVPUSH PRN (15:40)
[2020-10-24] MEDS ORDERED: oxyCODONE HCL 5 MG TABLET PO PRN (15:40)
[2020-10-24 17:01] VITALS: TEMP 98.1
[2020-10-24 17:27] VITALS: BP 126/79; PULSE 76
== END 2020-10-24 17:40 | disposition home or self-care (01) ==
LOC: JASU-SURG 04:08
PROVIDERS: ATTEND Student in an Organized Health Care Education/Training Program
PROC: 0UDB7ZX Extraction of Endometrium, Via Natural or Artificial Opening, Diagnostic (ICD-10-PCS; principal; 2020-10-24 13:00)
PROC: 0UJD8ZZ Inspection of Uterus and Cervix, Via Natural or Artificial Opening Endoscopic (ICD-10-PCS; 2020-10-24 13:00)
DX: N85.8 Other specified noninflammatory disorders of uterus (principal); N89.8 Other specified noninflammatory disorders of vagina
CPT/HCPCS: 81025; 88305-TC; 94760